=== PATIENT | female | born 1965 | race Two or more races ===

== ENCOUNTER 2025-10-19 15:07 | Outpatient (AMB) | payer OTHER, SELFPAY ==
--- NOTE | 2025-10-19 15:29 | A.PHYSOV_ITS ---
Vital Signs 10/19/25 15:34 Height 5 ft 4 in Weight 231 lb BMI 39.6 Intake Visit Reasons: Bilateral shoulder pain Intake Note: Patient is a 60 year old female in office today for a follow up visit. Patient is here for Bilateral shoulder pain pain is bilateral sleeping waking up with burses Allergies acetaminophen (From Percocet) Allergy (Unknown, Verified 10/16/25 16:32) Unknown carisoprodol (From Soma) Allergy (Unknown, Verified 10/16/25 16:32) Unknown oxycodone (From Percocet) Allergy (Unknown, Verified 10/16/25 16:32) Unknown Sulfa (Sulfonamide Antibiotics) Allergy (Unknown, Verified 10/16/25 16:32) Unknown HPI Comments Details: History of Present Illness The patient is a 60 year old female presenting for management of bilateral shoulder pain. The patient reports that pain in her shoulders makes it difficult to sleep on her side and causes pain when she lifts her arms. She has received injections in her shoulder before, which provided relief. The patient also reports issues with hip pain and received two cortisone injections in her hips from another provider on the day of this visit. That provider suspects she has bursitis. She notes her knee pain is improving post- surgery, but her hip pain has worsened. The patient was recently diagnosed with diabetes after her A1c was 6.6. With weekly Mounjaro injections, her A1c has decreased to 5.2. She has a history of hypertension, noting her blood pressure elevates when she is in pain and her sleep is poor. She also takes a statin medication for cholesterol. The patient experiences numbness in her leg if she sits for too long. For pain, she has previously taken gabapentin 100 mg, sometimes up to 300 mg at a time, which she found helpful but ran out. She reports anxiety and nervousness related to receiving injections. Her family history is significant for arthritis in her mother and heart disease affecting her mother, grandmother, and grandfather. She is currently on FMLA from work and is concerned about returning while still in pain. Pain Description - Location: Pain is located in the bilateral shoulders and hips. - Quality: The pain is severe enough to wake her from sleep. - Exacerbating Factors: Shoulder pain is worsened by sleeping on her side and lifting her arms. - Interference with Function: Pain interferes with her sleep, ability to roll over, walking, and ability to work. Results - Labs: Recent hemoglobin A1c was 5.2%, down from a prior level of 6.6%. [facility] Surgical History (Updated 10/16/25 @ 16:32 by Niesha Foss MA) History of cholecystectomy Social History (Updated 10/16/25 @ 16:32 by Niesha Foss MA) Alcohol intake: current Alcohol intake frequency: does not drink Review of Systems Narrative Review of Systems - Constitutional: Reports poor sleep due to pain. - Musculoskeletal: Reports bilateral shoulder pain and bilateral hip pain. - Neurological: Reports intermittent numbness in her leg when sitting for prolonged periods. - Psychiatric: Reports feeling anxious and nervous when receiving injections. Physical Exam Exam Exam: Physical Exam Cervical Spine: She is tender to bilateral upper trapezius. Full range of motion of the cervical spine. Special Tests: Axial Compression test: Negative Spurlings test: Negative Lhermitte's sign is Negative Upper Extremities: Full range of motion bilateral upper extremities. 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 Positive Neer testing bilaterally. Neuro: Sensation: Intact to upper extremities bilateral to light touch Strength C5 (Elbow Flexion): 5/5 on the left and 5/5 on the right. C6 (Elbow Ext): 5/5 on the left and 5/5 on the right. C7 (Elbow Ext): 5/5 on the left and 5/5 on the right. C8 (Finger Flex): 5/5 on the left and 5/5 on the right. T1 (Finger Abd/Add): 5/5 on the left and 5/5 on the right. DTR: C5 (Biceps): Left 2 Right 2 C6 (Brachioradialis): Left 2 Right 2 C7 (Triceps): Left 2 Right 2 Robles sign: Negative No pathologic clonus. No involuntary movement. Vital Signs: BMI result Body Mass Index 39.6 Assessment & Plan Assessment & Plan (1) Impingement of both shoulders: Code(s): M25.811 - Other specified joint disorders, right shoulder; M25.812 - Other specified joint disorders, left shoulder Category: Medical Plan Pain Management - Affect: The patient reports being tired of being in pain and notes that her pain contributes to poor sleep, which in turn elevates her blood pressure. - Analgesia: The patient reports that gabapentin was helping her pain and requests a refill. - She received two steroid injections in her hips from another provider today. - Adverse Effects: The patient is concerned that steroid injections can raise her blood sugar. - Activities of Daily Living: Pain interferes with her sleep, walking, and ability to perform her job. - Aberrant Drug Related Behaviors: The patient denies any aberrant behaviors and reports using gabapentin based on her pain levels. Plan Patient was informed and verbally consented to the use of an ambient scribe for clinic note documentation during this visit. 1. Bilateral Shoulder Pain The patient reports bilateral shoulder pain that is affecting her sleep and function. As she received two steroid injections in her hips today, she is not a candidate for shoulder injections at this visit. A follow-up appointment will be scheduled in approximately two weeks to administer two cortisone injections into the shoulders. 2. Neuropathic Pain The patient reports that gabapentin was effective for her pain, but she ran out of her prescription. A new prescription for gabapentin 300 mg tablets will be sent to her pharmacy, with instructions to take one tablet up to three times daily as needed for pain, with plenty of refills provided. 3. Type 2 Diabetes Mellitus The patient voiced concern about the effect of cortisone injections on her blood sugar, as she was recently diagnosed with diabetes. She was counseled that steroids can cause a temporary spike in daily glucose readings for 3-5 days but are unlikely to significantly impact her overall hemoglobin A1c over three months. She will monitor the effects of the recent hip injections on her blood sugar. 4. Bilateral Hip Pain The patient is being managed for bilateral hip pain by another provider and received two injections for this condition today. Her care for this issue will continue with that provider. Discussion Notes I discussed with the patient the importance of having one provider manage each specific problem to avoid confusion and overlapping treatments, particularly regarding her hip and shoulder pain. I explained that because she received two steroid injections in her hips today, I cannot safely administer additional steroid injections for her shoulders during this visit. We agreed to schedule a follow-up appointment in approximately two weeks for bilateral shoulder injections. I addressed her concerns about the effect of steroids on her diabetes, explaining that while her daily blood glucose may rise temporarily, it is not expected to have a significant long-term impact on her hemoglobin A1c. I agreed to her request for a refill of gabapentin, as it has been effective for her pain, and I will prescribe the 300 mg dosage to be taken up to three times a day. Regarding her new symptom of leg numbness, I suggested it may originate from her back but agreed to focus on the shoulder pain first. Patient Instructions - Please make a follow-up appointment at the senior front end engineer for about two weeks from now. - At that visit, we can give you injections in your shoulders to help with the pain. - I have sent a prescription for Gabapentin 300 mg tablets to the [facility]. - You can take one pill up to three times a day as you need it for pain. - The steroid shots you received in your hips today may cause your blood sugar to go up for a few days. - This is usually temporary, but please keep an eye on your sugar levels. - Please continue to follow up with your other doctor for your hip pain. Medications: New gabapentin 300 mg PO TID 90 caps 0RF 30 days M54.16 - Radiculopathy, lumbar region Coding Level of Care Code Tele Est Pt Level 3 (92239) Diagnoses Impingement of both shoulders M25.811; M25.812
[2025-10-19 15:34] VITALS: BMI 39.6
--- OUTSIDE RECORDS SUMMARY | 2025-10-19 22:39 | XMS_ITS ---
Author Name [facility] Organization Unknown Care Team Organization Name Specialty Phone Email Start Date End Da te [facility] Shara Santos Primary Care 08/12/2023 024 [facility] Dylan Chilel Primary Care 01/14/202306/09 [facility] Termed, PROVIDER Primary Care 09/16/202206/09
--- OUTSIDE RECORDS SUMMARY | 2025-10-19 22:39 | XMS_ITS | Encounter Summary ---
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 Role Phone Shara Santos MD Primary Care Provider [phone] Encounter Details Date Type Department Care Team (Late Contact Info) Description 09/11/2025 Results Follow-Up Adult Medicine [address] [phone] Deedee Carreon [place] Social History Tobacco Use Types Packs/Day Years Used Date Smoking Tobacco: Never Smokeless Tobacco: Never Alcohol Use Standard Drinks/Week Comments Not Currently 0 (1 standard drink = 0.6 oz pur e alcohol) Comments No Sex and Gender Information Value Date Recorded Sex Assigned at Not on file Legal Sex Female 4:33 AM EST Gender Identity Not on file Sexual Orientation Not on file documented as of this encounter Plan of Treatment Upcoming Encounters Date Type Department Care Team (Late Contact Info) Description 01/10/2026 12:30 PM EST Office Visit Adult Medicine [address] [phone] Dede Holden PA [address] [place] [address] 03/14/2026 11:00 AM EDT [facility] [address] [facility] [address] [place] [phone] 04/18/2026 11:30 AM EDT Office Visit Pulmonology [address] [place] [phone] Claire Richmond MD [address] [place] [phone] documented as of this encounter Visit Diagnoses Not on filedocumented in this encounter Care Teams [employer] Mechanic Relationship Specialty Start Date End Date Shara Santos MD [address] [place] [phone] PCP - General Internal Medicine 09/14/24 documented as of this encounter
--- OUTSIDE RECORDS SUMMARY | 2025-10-19 22:39 | XMS_ITS | Patient Health Record ---
Author Organization [facility] [address] Address [address] [place] [address] Care Team Providers Care Director Of Cardiac Cath Lab Name Role Phone Charlee [employer] [facility] Primary Car e Provider Unavailable JARED HADDAD Unavailable [phone] Allergies Allergen (clinical drug ingredient) Drug/Non Drug Allergy documented on EMR Reaction Allergy Type Onset Date Status acetaminophen / oxycodone Percocet Unknown Drug Allergy Active carisoprodol Soma hives Drug Allergy Acti ve Substance with sulfonamide structure and antibacterial mechanism of action (substance) Sulfa Antibiotics hives Drug Allergy Active Results Component Value Reference Range Notes LIPASE Reviewed date:02/16/2025 11:25:46 AM Interpretation: Performing Lab: Notes/Report: Lipase 29 13-75 unit/L AMYLASE Reviewed date:02/16/2025 11:25:43 AM Interpretation: Performing Lab: Notes/Report: Amylase 64 25-115 unit/L Reason For Referral No Information Medications Medication SIG (Take, Route, Frequency, Duration) Notes Start Date End Date Status Albuterol Sulfate (2.5 MG/3ML) 0.083% Nebulization Solution Inhalation; Duration: 16 Days Active Atorvastatin Calcium 10 MG Tablet Oral; Duration: 90 Days Active Losartan Potassium 50 MG Tablet TAKE 1 TABLET BY MOUTH EVERY DAY Oral; Duration: 90 Days Active Diclofenac Sodium 75 MG Tablet Delayed Release TAKE 1 TABLET BY MOUTH TWICE A DAY Oral; Duration: 30 Days Active Breztri Aerosphere 160-9-4.8 MCG/ACT Aerosol 2 puffs Inhalation Twice a day Active Motrin 800mg as needed for pain Active Omeprazole 20 MG Capsule Delayed Release TAKE 1 CAPSULE BY MOUTH EVERY DAY Oral; Duration: 90 Days Active Montelukast Sodium 10 MG Tablet TAKE 1 TABLET BY MOUTH EVERYDAY AT BEDTIME Oral; Duration: 90 Days Active Methocarbamol 750 MG Tablet Oral; Duration: 30 Days Active Mounjaro 15 MG/0.5ML Solution Auto-injector Inject 15mg Subcutaneous weekly; Duration: 30 days Active Social History Section Notes: Tob: Denies Etoh: Social/infrequent Drug: Denies Tob: Denies Etoh: Social/infrequent Drug: Denies Tob: Denies Etoh: Social/infrequent Drug: Denies Tob: Denies Etoh: Social/infrequent Drug: Denies Tob: Denies Etoh: Social/infrequent Drug: Denies Tob: Denies Etoh: Social/infrequent Drug: Denies Tob: Denies Etoh: Social/infrequent Drug: Denies Problems Problem Type SNOMED Code ICD Code Onset Dates Problem Status W/U Status Risk Notes Problem Mixed hyperlipidemia (586560195) Mixed hyperlipidemia (E78.2) Active confirmed Problem Essential hypertension (31997015) Essential hypertension (I10) Active confirmed Problem Arthritis (0354038) Arthritis (M19.90) Active confirmed Problem Body mass index 40+ - morbidly obese (767906827) BMI 40.0-44.9, adult (Z68.41) Active confirmed Problem Type II diabetes mellitus without complication (945566088) Type 2 diabetes mellitus without complication, without long-term current use of insulin (E11.9) Active confirmed Problem Uncomplicated moderate persistent asthma (987212691) Moderate persistent asthma without complication (J45.40) Active confirmed Problem Morbid obesity (disorder) (233309116) Obesity, Class III, BMI 40-49.9 (morbid obesity) (E66.01) Active confirmed Vital Signs Heart Rate 93 /min 09/26/2025 Oximetry 98 % 09/26/2025 Blood pressure diastolic 82 mm Hg 09/26/2025 Height 63 in 09/26/2025 Blood pressure systolic 138 mm Hg 09/26/2025 Weight 228.9 lbs 09/26/2025 BMI 40.54 kg/m2 09/26/2025 Encounters Encounter Location Date Provider Diagnosis [facility] [address] [place] [id number] 02/14/2025 JARED CATIE Obesity, Class III, BMI 40-49.9 (morbid obesity) E66.01 ; BMI 40.0-44.9, adult Z68.41 ; Type 2 diabetes mellitus without complication, without long-term current use of insulin E11.9 ; Essential hypertension I10 ; Mixed hyperlipidemia E78.2 ; Moderate persistent asthma without complication J45.40 ; Arthritis M19.90 ; History of pancreatitis Z87.19 and Nutritional [facility]71.[facility] [address] [address] 03/15/2025 JARED MATTHEWS Obesity, Class III, BMI 40-49.9 (morbid obesity) E66.01 ; BMI 40.0-44.9, adult Z68.41 ; Type 2 diabetes mellitus without complication, without long-term current use of insulin E11.9 ; Essential hypertension I10 ; Mixed hyperlipidemia E78.2 ; Moderate persistent asthma without complication J45.40 ; Arthritis M19.90 ; History of pancreatitis Z87.19 and Nutritional counseling Z71.3 [facility] [address] [address] 04/12/2025 JARED MATTHEWS Obesity, Class III, BMI 40-49.9 (morbid obesity) E66.01 ; BMI 40.0-44.9, adult Z68.41 ; Type 2 diabetes mellitus without complication, without long-term current use of insulin E11.9 ; Essential hypertension I10 ; Mixed hyperlipidemia E78.2 ; Arthritis M19.90 and Nutritional counseling Z71.3 [facility] [address] [address] 05/17/2025 JARED MATTHEWS BMI 40.0-44.9, adult Z68.41 ; Obesity, Class III, BMI 40-49.9 (morbid obesity) E66.01 ; Type 2 diabetes mellitus without complication, without long-term current use of insulin E11.9 ; Essential hypertension I10 ; Mixed hyperlipidemia E78.2 ; Arthritis M19.90 and Nutritional counseling Z71.3 [facility] [address] [address] 06/22/2025 JARED MATTHEWS BMI 40.0-44.9, adult Z68.41 ; Obesity, Class III, BMI 40-49.9 (morbid obesity) E66.01 ; Type 2 diabetes mellitus without complication, without long-term current use of insulin E11.9 ; Essential hypertension I10 ; Mixed hyperlipidemia E78.2 ; Arthritis M19.90 and Nutritional counseling Z71.3 [facility] [address] [address] 08/10/2025 JARED HADDAD BMI 40.0-44.9, adult Z68.41 ; Obesity, Class III, BMI 40-49.9 (morbid obesity) E66.01 ; Type 2 diabetes mellitus without complication, without long-term current use of insulin E11.9 ; Essential hypertension I10 ; Mixed hyperlipidemia E78.2 ; Arthritis M19.90 and Nutritional counseling Z71.3 [facility] [address] [address] 09/26/2025 JARED CONNELLYHAM BMI 40.0-44.9, adult Z68.41 ; Obesity, Class III, BMI 40-49.9 (morbid obesity) E66.01 ; Type 2 diabetes mellitus without complication, without long-term current use of insulin E11.9 ; Essential hypertension I10 ; Mixed hyperlipidemia E78.2 ; Arthritis M19.90 and Nutritional counseling Z71.3 [facility] [address] [address] 02/16/2025 JARED MATTHEWS [facility] [address] [address] 02/20/2025 JARED MATTHEWS [facility] [address] [address] 02/28/2025 JARDE MATTHEWS [facility] [address] [address] 08/10/2025 JARED MATTHEWS Type 2 diabetes johanna itus without complication, without long-term current use of insulin E11.9 Assessments Encounter Date Diagnosis (ICD Code) Assessment Notes Treatment Notes Treatment Clinical Notes Section Notes 02/14/2025 BMI 40.0-44.9, adult (ICD-10 - Z68.41) Kasie is a 59-year-old female with a PMH of T2DM (A1c 6.6%), asthma, HTN, HLD, arthritis that presents for weight management consultation. Patient was reassured and welcomed to the practice. Discussed [facility] holistic and medical approach to weight loss with emphasis on lifestyle modification. Patient is educated that a healthy lifestyle aids in combating obesity as well as reducing the risk of developing obesity-related medical complications including but not limited to diabetes and cardiovascular disease. Detailed education provided about taking steps to initiate sustainable lifestyle changes including incorporating regular physical activity, making healthy diet choices, and prioritizing mental health. Information provided about literature including The Food Rules by Mukul Lopez and Eat Fat Get Lean by Dr Brannon Flynn. Handouts including lifestyle checklist, protein content of food, low calorie snacks, and cholesterol information sheet provided. Diagnostic testing/ SECA scale offered. Discussed the importance of regular SECA scale measurements to ensure healthy weight loss. 02/14/2025: Weight: 248, BMI: 43.9. Reviewed SECA/goals for implementing sustainable lifestyle changes. Patient is encouraged to increase physical activity, goal 8-10k steps/day. Also discussed the importance of strength training with proper safety/body mechanics for maintenance of muscle mass/bone health. Patient encouraged to drink 60-80oz water/day. Reviewed nutrition, recommending food diary x 1 week to ensure adequate caloric/protein intake. Goal of 80g protein/day. Reviewed risks, benefits, and side effects of weight management medications including phentermine, Topamax, Contrave, metformin, and GLP-1 agonist. Patient interested in GLP-1 agonist Mounjaro. Denies personal/family history of medullary thyroid cancer/MEN syndrome. Reviewed proper use/administration, side effects, and expectations for PA process/insurance coverage. Patient does have history of mild pancreatitis, upon review of [employer] no history of previous amylase/lipase. Will order to assess if elevated at baseline prior to starting Mounjaro. If WNL plan to send Rx for Mounjaro 2.5 mg SC weekly. All questions answered to the patient's satisfaction. Patient demonstrates understanding of diagnosis and treatments discussed. Follow-up in 4 weeks, sooner should any questions/concerns arise. Case discussed with collaborating physician Gaby Mcpherson who has reviewed the assessment/plan. Chart, medications, labs, and vital signs reviewed. Dictation completed with the use of [employer] voice recognition software, prone to medical misidentifications and grammatical errors. All errors are unintentional. Although the practitioner does try to identify and correct errors, some may be present. Please do not hesitate to contact the practitioner for clarification. Total time was 60 minutes spent with >50% on coordination of care and patient education. 02/14/2025 Obesity, Class III, BMI 40-49.9 (morbid obesity) (ICD-10 - E66.01) Kasie is a 59-year-old female with a PMH of T2DM (A1c 6.6%), asthma, HTN, HLD, arthritis that presents for weight management consultation. Patient was reassured and welcomed to the practice. Discussed [facility] holistic and medical approach to weight loss with emphasis on lifestyle modification. Patient is educated that a healthy lifestyle aids in combating obesity as well as reducing the risk of developing obesity-related medical complications including but not limited to diabetes and cardiovascular disease. Detailed education provided about taking steps to initiate sustainable lifestyle changes including incorporating regular physical activity, making healthy diet choices, and prioritizing mental health. Information provided about literature including The Food Rules by Mukul Lopez and Eat Fat Get Lean by Dr Brannon Flynn. Handouts including lifestyle checklist, protein content of food, low calorie snacks, and cholesterol information sheet provided. Diagnostic testing/ SECA scale offered. Discussed the importance of regular SECA scale measurements to ensure healthy weight loss. 02/14/2025: Weight: 248, BMI: 43.9. Reviewed SECA/goals for implementing sustainable lifestyle changes. Patient is encouraged to increase physical activity, goal 8-10k steps/day. Also discussed the importance of strength training with proper safety/body mechanics for maintenance of muscle mass/bone health. Patient encouraged to drink 60-80oz water/day. Reviewed nutrition, recommending food diary x 1 week to ensure adequate caloric/protein intake. Goal of 80g protein/day. Reviewed risks, benefits, and side effects of weight management medications including phentermine, Topamax, Contrave, metformin, and GLP-1 agonist. Patient interested in GLP-1 agonist Mounjaro. Denies personal/family history of medullary thyroid cancer/MEN syndrome. Reviewed proper use/administration, side effects, and expectations for PA process/insurance coverage. Patient does have history of mild pancreatitis, upon review of [employer] no history of previous amylase/lipase. Will order to assess if elevated at baseline prior to starting Mounjaro. If WNL plan to send Rx for Mounjaro 2.5 mg SC weekly. All questions answered to the patient's satisfaction. Patient demonstrates understanding of diagnosis and treatments discussed. Follow-up in 4 weeks, sooner should any questions/concerns arise. Case discussed with collaborating physician Gaby Mcpherson who has reviewed the assessment/plan. Chart, medications, labs, and vital signs reviewed. Dictation completed with the use of [employer] voice recognition software, prone to medical misidentifications and grammatical errors. All errors are unintentional. Although the practitioner does try to identify and correct errors, some may be present. Please do not hesitate to contact the practitioner for clarification. Total time was 60 minutes spent with >50% on coordination of care and patient education. 03/15/2025 Obesity, Class III, BMI 40-49.9 (morbid obesity) (ICD-10 - E66.01) Kasie is a 59-year-old female with a PMH of T2DM (A1c 6.6%), asthma, HTN, HLD, arthritis that presents for weight management follow-up. Reviewed [facility] holistic and medical approach to weight loss with emphasis on lifestyle modification. 03/15/2025: Weight: 244.6, BMI: 43.3. Patient down 4 pounds. SECA reviewed, reveals 6 pounds of fat mass and maintenance of healthy muscle mass. Discussed importance of continued prioritization of protein intake, goal 25 to 30 g/meal. She is also encouraged to continue hydrating adequately. Recommending at least 8K steps/day with added strength training 2-3 times weekly. Will increase dose of Mounjaro to 5 mg SC weekly and follow-up in 1 month. 02/14/2025: Weight: 248, BMI: 43.9. Reviewed SECA/goals for implementing sustainable lifestyle changes. Patient is encouraged to increase physical activity, goal 8-10k steps/day. Also discussed the importance of strength training with proper safety/body mechanics for maintenance of muscle mass/bone health. Patient encouraged to drink 60-80oz water/day. Reviewed nutrition, recommending food diary x 1 week to ensure adequate caloric/protein intake. Goal of 80g protein/day. Reviewed risks, benefits, and side effects of weight management medications including phentermine, Topamax, Contrave, metformin, and GLP-1 agonist. Patient interested in GLP-1 agonist Mounjaro. Denies personal/family history of medullary thyroid cancer/MEN syndrome. Reviewed proper use/administration, side effects, and expectations for PA process/insurance coverage. Patient does have history of mild pancreatitis, upon review of [employer] no history of previous amylase/lipase. Will order to assess if elevated at baseline prior to starting Mounjaro. If WNL plan to send Rx for Mounjaro 2.5 mg SC weekly. All questions answered to the patient's satisfaction. Patient demonstrates understanding of diagnosis and treatments discussed. Follow-up in 4 weeks, sooner should any questions/concerns arise. Case discussed with collaborating physician Gaby Mcpherson who has reviewed the assessment/plan. Chart, medications, labs, and vital signs reviewed. Dictation completed with the use of [employer] voice recognition software, prone to medical misidentifications and grammatical errors. All errors are unintentional. Although the practitioner does try to identify and correct errors, some may be present. Please do not hesitate to contact the practitioner for clarification. Total time was 30 minutes spent with >50% on coordination of care and patient education. 04/12/2025 BMI 40.0-44.9, adult (ICD-10 - Z68.41) Kasie is a 59-year-old female with a PMH of T2DM (A1c 6.6%), asthma, HTN, HLD, arthritis that presents for weight management follow-up. Reviewed [facility] holistic and medical approach to weight loss with emphasis on lifestyle modification. 04/12/2025: Weight: 240.8, BMI: 42.6. Patient down 4 pounds. SECA reviewed, reveals 1.5 pounds of fat loss and 3 pounds muscle mass loss. Patient encouraged to continue making health-conscious diet choices and practicing portion control. Protein goal 25 to 30 g/meal. Discussed importance of exercising as tolerated with goal of not exacerbating current knee injury. Plan increase dose of Mounjaro to 7.5 mg SC weekly and follow-up in 1 month. 03/15/2025: Weight: 244.6, BMI: 43.3. (-4lbs) 02/14/2025: Weight: 248, BMI: 43.9. All questions answered to the patient's satisfaction. Patient demonstrates understanding of diagnosis and treatments discussed. Follow-up in 4 weeks, sooner should any questions/concerns arise. Case discussed with collaborating physician Gaby Mcpherson who has reviewed the assessment/plan. Chart, medications, labs, and vital signs reviewed. Dictation completed with the use of [employer] voice recognition software, prone to medical misidentifications and grammatical errors. All errors are unintentional. Although the practitioner does try to identify and correct errors, some may be present. Please do not hesitate to contact the practitioner for clarification. Total time was 30 minutes spent with >50% on coordination of care and patient education. 04/12/2025 Obesity, Class III, BMI 40-49.9 (morbid obesity) (ICD-10 - E66.01) Kasie is a 59-year-old female with a PMH of T2DM (A1c 6.6%), asthma, HTN, HLD, arthritis that presents for weight management follow-up. Reviewed [facility] holistic and medical approach to weight loss with emphasis on lifestyle modification. 04/12/2025: Weight: 240.8, BMI: 42.6. Patient down 4 pounds. SECA reviewed, reveals 1.5 pounds of fat loss and 3 pounds muscle mass loss. Patient encouraged to continue making health-conscious diet choices and practicing portion control. Protein goal 25 to 30 g/meal. Discussed importance of exercising as tolerated with goal of not exacerbating current knee injury. Plan increase dose of Mounjaro to 7.5 mg SC weekly and follow-up in 1 month. 03/15/2025: Weight: 244.6, BMI: 43.3. (-4lbs) 02/14/2025: Weight: 248, BMI: 43.9. All questions answered to the patient's satisfaction. Patient demonstrates understanding of diagnosis and treatments discussed. Follow-up in 4 weeks, sooner should any questions/concerns arise. Case discussed with collaborating physician Gaby Mcpherson who has reviewed the assessment/plan. Chart, medications, labs, and vital signs reviewed. Dictation completed with the use of [employer] voice recognition software, prone to medical misidentifications and grammatical errors. All errors are unintentional. Although the practitioner does try to identify and correct errors, some may be present. Please do not hesitate to contact the practitioner for clarification. Total time was 30 minutes spent with >50% on coordination of care and patient education. 05/17/2025 BMI 40.0-44.9, adult (ICD-10 - Z68.41) Kasie is a 60-year-old female with a PMH of T2DM (A1c 6.6%), asthma, HTN, HLD, arthritis that presents for weight management follow-up. Reviewed [facility] holistic and medical approach to weight loss with emphasis on lifestyle modification. 05/17/2025: Weight: 239.7, BMI: 42.5. SECA reviewed, reveals 3 pounds of fat loss and 2 pounds muscle mass gain. Patient encouraged to continue making health-conscious diet choices and prioritizing protein intake. Discussed importance of adequate hydration. Discussed modified physical activity with a goal of not exacerbating knee pain. Will increase dose of Mounjaro to 10 mg SC weekly. Upon discontinuation for surgery will reinitiate at lower dose. 04/12/2025: Weight: 240.8, BMI: 42.6. (-4lbs) 03/15/2025: Weight: 244.6, BMI: 43.3. (-4lbs) 02/14/2025: Weight: 248, BMI: 43.9. All questions answered to the patient's satisfaction. Patient demonstrates understanding of diagnosis and treatments discussed. Follow-up in 4 weeks, sooner should any questions/concerns arise. Case discussed with collaborating physician Gaby Mcpherson who has reviewed the assessment/plan. Chart, medications, labs, and vital signs reviewed. Dictation completed with the use of [employer] voice recognition software, prone to medical misidentifications and grammatical errors. All errors are unintentional. Although the practitioner does try to identify and correct errors, some may be present. Please do not hesitate to contact the practitioner for clarification. Total time was 30 minutes spent with >50% on coordination of care and patient education. 06/22/2025 BMI 40.0-44.9, adult (ICD-10 - Z68.41) Kasie is a 60-year-old female with a PMH of T2DM (A1c 6.6%), asthma, HTN, HLD, arthritis that presents for weight management follow-up. Reviewed [facility] holistic and medical approach to weight loss with emphasis on lifestyle modification. 06/22/2025: Weight: 237.7, BMI: 42.1 (-3lbs) SECA reviewed, reveals loss of fat mass with improvement in muscle mass. Patient encouraged to continue making health-conscious diet choices, prioritizing protein intake, practicing portion control, hydrating adequately, and exercising as tolerated. Will reinitiate treatment with Mounjaro 10 mg SC weekly and follow-up in 6 weeks. 05/17/2025: Weight: 239.7, BMI: 42.5. (-1lb) 04/12/2025: Weight: 240.8, BMI: 42.6. (-4lbs) 03/15/2025: Weight: 244.6, BMI: 43.3. (-4lbs) 02/14/2025: Weight: 248, BMI: 43.9. All questions answered to the patient's satisfaction. Patient demonstrates understanding of diagnosis and treatments discussed. Follow-up in 4 weeks, sooner should any questions/concerns arise. Case discussed with collaborating physician Gaby Mcpherson who has reviewed the assessment/plan. Chart, medications, labs, and vital signs reviewed. Dictation completed with the use of [employer] voice recognition software, prone to medical misidentifications and grammatical errors. All errors are unintentional. Although the practitioner does try to identify and correct errors, some may be present. Please do not hesitate to contact the practitioner for clarification. Total time was 30 minutes spent with >50% on coordination of care and patient education. 08/10/2025 BMI 40.0-44.9, adult (ICD-10 - Z68.41) Kasie is a 60-year-old female with a PMH of T2DM (A1c 6.6%), asthma, HTN, HLD, arthritis that presents for weight management follow-up. Reviewed [facility] holistic and medical approach to weight loss with emphasis on lifestyle modification. 08/10/2025: Weight: 228, BMI: 40.4. (-9lbs) SECA reviewed, reveals primarily fat loss. Patient congratulated on progress. She is encouraged to continue making health-conscious diet choices and prioritizing protein intake. Discussed importance of adequate hydration. Increase physical activity as tolerated given recent knee replacement. Will increase dose of Mounjaro to 12.5 mg SC weekly and follow-up in 6 weeks. 06/22/2025: Weight: 237.7, BMI: 42.1 (-3lbs) 05/17/2025: Weight: 239.7, BMI: 42.5. (-1lb) 04/12/2025: Weight: 240.8, BMI: 42.6. (-4lbs) 03/15/2025: Weight: 244.6, BMI: 43.3. (-4lbs) 02/14/2025: Weight: 248, BMI: 43.9. All questions answered to the patient's satisfaction. Patient demonstrates understanding of diagnosis and treatments discussed. Follow-up in 4 weeks, sooner should any questions/concerns arise. Case discussed with collaborating physician Gaby Mcpherson who has reviewed the assessment/plan. Chart, medications, labs, and vital signs reviewed. Dictation completed with the use of [employer] voice recognition software, prone to medical misidentifications and grammatical errors. All errors are unintentional. Although the practitioner does try to identify and correct errors, some may be present. Please do not hesitate to contact the practitioner for clarification. Total time was 30 minutes spent with >50% on coordination of care and patient education. 08/10/2025 Type 2 diabetes mellitus without complication, without long-term current use of insulin (ICD-10 - E11.9) 09/26/2025 BMI 40.0-44.9, adult (ICD-10 - Z68.41) Kasie is a 60-year-old female with a PMH of T2DM (A1c 6.6%), asthma, HTN, HLD, arthritis that presents for weight management follow-up. Reviewed [facility] holistic and medical approach to weight loss with emphasis on lifestyle modification. 09/26/2025: Weight: 228.9, BMI: 40.5. SECA reviewed, relatively unchanged. She is encouraged to continue making health-conscious diet choices and prioritizing protein intake. Discussed importance of adequate hydration. Increase physical activity as tolerated given recent knee replacement. Will increase dose of Mounjaro to 15 mg SC weekly and follow-up in 6 weeks. 08/10/2025: Weight: 228, BMI: 40.4. (-9lbs) 06/22/2025: Weight: 237.7, BMI: 42.1 (-3lbs) 05/17/2025: Weight: 239.7, BMI: 42.5. (-1lb) 04/12/2025: Weight: 240.8, BMI: 42.6. (-4lbs) 03/15/2025: Weight: 244.6, BMI: 43.3. (-4lbs) 02/14/2025: Weight: 248, BMI: 43.9. All questions answered to the patient's satisfaction. Patient demonstrates understanding of diagnosis and treatments discussed. Follow-up in 4 weeks, sooner should any questions/concerns arise. Case discussed with collaborating physician Gaby Mcpherson who has reviewed the assessment/plan. Chart, medications, labs, and vital signs reviewed. Dictation completed with the use of [employer] voice recognition software, prone to medical misidentifications and grammatical errors. All errors are unintentional. Although the practitioner does try to identify and correct errors, some may be present. Please do not hesitate to contact the practitioner for clarification. Total time was 30 minutes spent with >50% on coordination of care and patient education. 09/26/2025 Type 2 diabetes mellitus without complication, without long-term current use of insulin (ICD-10 - E11.9) Kasie is a 60-year-old female with a PMH of T2DM (A1c 6.6%), asthma, HTN, HLD, arthritis that presents for weight management follow-up. Reviewed [facility] holistic and medical approach to weight loss with emphasis on lifestyle modification. 09/26/2025: Weight: 228.9, BMI: 40.5. SECA reviewed, relatively unchanged. She is encouraged to continue making health-conscious diet choices and prioritizing protein intake. Discussed importance of adequate hydration. Increase physical activity as tolerated given recent knee replacement. Will increase dose of Mounjaro to 15 mg SC weekly and follow-up in 6 weeks. 08/10/2025: Weight: 228, BMI: 40.4. (-9lbs) 06/22/2025: Weight: 237.7, BMI: 42.1 (-3lbs) 05/17/2025: Weight: 239.7, BMI: 42.5. (-1lb) 04/12/2025: Weight: 240.8, BMI: 42.6. (-4lbs) 03/15/2025: Weight: 244.6, BMI: 43.3. (-4lbs) 02/14/2025: Weight: 248, BMI: 43.9. All questions answered to the patient's satisfaction. Patient demonstrates understanding of diagnosis and treatments discussed. Follow-up in 4 weeks, sooner should any questions/concerns arise. Case discussed with collaborating physician Gaby Mcpherson who has reviewed the assessment/plan. Chart, medications, labs, and vital signs reviewed. Dictation completed with the use of [employer] voice recognition software, prone to medical misidentifications and grammatical errors. All errors are unintentional. Although the practitioner does try to identify and correct errors, some may be present. Please do not hesitate to contact the practitioner for clarification. Total time was 30 minutes spent with >50% on coordination of care and patient education. 09/26/2025 Obesity, Class III, BMI 40-49.9 (morbid obesity) (ICD-10 - E66.01) Kasie is a 60-year-old female with a PMH of T2DM (A1c 6.6%), asthma, HTN, HLD, arthritis that presents for weight management follow-up. Reviewed [facility] holistic and medical approach to weight loss with emphasis on lifestyle modification. 09/26/2025: Weight: 228.9, BMI: 40.5. SECA reviewed, relatively unchanged. She is encouraged to continue making health-conscious diet choices and prioritizing protein intake. Discussed importance of adequate hydration. Increase physical activity as tolerated given recent knee replacement. Will increase dose of Mounjaro to 15 mg SC weekly and follow-up in 6 weeks. 08/10/2025: Weight: 228, BMI: 40.4. (-9lbs) 06/22/2025: Weight: 237.7, BMI: 42.1 (-3lbs) 05/17/2025: Weight: 239.7, BMI: 42.5. (-1lb) 04/12/2025: Weight: 240.8, BMI: 42.6. (-4lbs) 03/15/2025: Weight: 244.6, BMI: 43.3. (-4lbs) 02/14/2025: Weight: 248, BMI: 43.9. All questions answered to the patient's satisfaction. Patient demonstrates understanding of diagnosis and treatments discussed. Follow-up in 4 weeks, sooner should any questions/concerns arise. Case discussed with collaborating physician Gaby Mcpherson who has reviewed the assessment/plan. Chart, medications, labs, and vital signs reviewed. Dictation completed with the use of [employer] voice recognition software, prone to medical misidentifications and grammatical errors. All errors are unintentional. Although the practitioner does try to identify and correct errors, some may be present. Please do not hesitate to contact the practitioner for clarification. Total time was 30 minutes spent with >50% on coordination of care and patient education. 08/10/2025 Obesity, Class III, BMI 40-49.9 (morbid obesity) (ICD-10 - E66.01) Kasie is a 60-year-old female with a PMH of T2DM (A1c 6.6%), asthma, HTN, HLD, arthritis that presents for weight management follow-up. Reviewed [facility] holistic and medical approach to weight loss with emphasis on lifestyle modification. 08/10/2025: Weight: 228, BMI: 40.4. (-9lbs) SECA reviewed, reveals primarily fat loss. Patient congratulated on progress. She is encouraged to continue making health-conscious diet choices and prioritizing protein intake. Discussed importance of adequate hydration. Increase physical activity as tolerated given recent knee replacement. Will increase dose of Mounjaro to 12.5 mg SC weekly and follow-up in 6 weeks. 06/22/2025: Weight: 237.7, BMI: 42.1 (-3lbs) 05/17/2025: Weight: 239.7, BMI: 42.5. (-1lb) 04/12/2025: Weight: 240.8, BMI: 42.6. (-4lbs) 03/15/2025: Weight: 244.6, BMI: 43.3. (-4lbs) 02/14/2025: Weight: 248, BMI: 43.9. All questions answered to the patient's satisfaction. Patient demonstrates understanding of diagnosis and treatments discussed. Follow-up in 4 weeks, sooner should any questions/concerns arise. Case discussed with collaborating physician Gaby Mcpherson who has reviewed the assessment/plan. Chart, medications, labs, and vital signs reviewed. Dictation completed with the use of [employer] voice recognition software, prone to medical misidentifications and grammatical errors. All errors are unintentional. Although the practitioner does try to identify and correct errors, some may be present. Please do not hesitate to contact the practitioner for clarification. Total time was 30 minutes spent with >50% on coordination of care and patient education. 06/22/2025 Obesity, Class III, BMI 40-49.9 (morbid obesity) (ICD-10 - E66.01) Kasie is a 60-year-old female with a PMH of T2DM (A1c 6.6%), asthma, HTN, HLD, arthritis that presents for weight management follow-up. Reviewed [facility] holistic and medical approach to weight loss with emphasis on lifestyle modification. 06/22/2025: Weight: 237.7, BMI: 42.1 (-3lbs) SECA reviewed, reveals loss of fat mass with improvement in muscle mass. Patient encouraged to continue making health-conscious diet choices, prioritizing protein intake, practicing portion control, hydrating adequately, and exercising as tolerated. Will reinitiate treatment with Mounjaro 10 mg SC weekly and follow-up in 6 weeks. 05/17/2025: Weight: 239.7, BMI: 42.5. (-1lb) 04/12/2025: Weight: 240.8, BMI: 42.6. (-4lbs) 03/15/2025: Weight: 244.6, BMI: 43.3. (-4lbs) 02/14/2025: Weight: 248, BMI: 43.9. All questions answered to the patient's satisfaction. Patient demonstrates understanding of diagnosis and treatments discussed. Follow-up in 4 weeks, sooner should any questions/concerns arise. Case discussed with collaborating physician Gaby Mcpherson who has reviewed the assessment/plan. Chart, medications, labs, and vital signs reviewed. Dictation completed with the use of [employer] voice recognition software, prone to medical misidentifications and grammatical errors. All errors are unintentional. Although the practitioner does try to identify and correct errors, some may be present. Please do not hesitate to contact the practitioner for clarification. Total time was 30 minutes spent with >50% on coordination of care and patient education. 05/17/2025 Obesity, Class III, BMI 40-49.9 (morbid obesity) (ICD-10 - E66.01) Kasie is a 60-year-old female with a PMH of T2DM (A1c 6.6%), asthma, HTN, HLD, arthritis that presents for weight management follow-up. Reviewed [facility] holistic and medical approach to weight loss with emphasis on lifestyle modification. 05/17/2025: Weight: 239.7, BMI: 42.5. SECA reviewed, reveals 3 pounds of fat loss and 2 pounds muscle mass gain. Patient encouraged to continue making health-conscious diet choices and prioritizing protein intake. Discussed importance of adequate hydration. Discussed modified physical activity with a goal of not exacerbating knee pain. Will increase dose of Mounjaro to 10 mg SC weekly. Upon discontinuation for surgery will reinitiate at lower dose. 04/12/2025: Weight: 240.8, BMI: 42.6. (-4lbs) 03/15/2025: Weight: 244.6, BMI: 43.3. (-4lbs) 02/14/2025: Weight: 248, BMI: 43.9. All questions answered to the patient's satisfaction. Patient demonstrates understanding of diagnosis and treatments discussed. Follow-up in 4 weeks, sooner should any questions/concerns arise. Case discussed with collaborating physician Gaby Mcpherson who has reviewed the assessment/plan. Chart, medications, labs, and vital signs reviewed. Dictation completed with the use of [employer] voice recognition software, prone to medical misidentifications and grammatical errors. All errors are unintentional. Although the practitioner does try to identify and correct errors, some may be present. Please do not hesitate to contact the practitioner for clarification. Total time was 30 minutes spent with >50% on coordination of care and patient education. 04/12/2025 Type 2 diabetes mellitus without complication, without long-term current use of insulin (ICD-10 - E11.9) Kasie is a 59-year-old female with a PMH of T2DM (A1c 6.6%), asthma, HTN, HLD, arthritis that presents for weight management follow-up. Reviewed [facility] holistic and medical approach to weight loss with emphasis on lifestyle modification. 04/12/2025: Weight: 240.8, BMI: 42.6. Patient down 4 pounds. SECA reviewed, reveals 1.5 pounds of fat loss and 3 pounds muscle mass loss. Patient encouraged to continue making health-conscious diet choices and practicing portion control. Protein goal 25 to 30 g/meal. Discussed importance of exercising as tolerated with goal of not exacerbating current knee injury. Plan increase dose of Mounjaro to 7.5 mg SC weekly and follow-up in 1 month. 03/15/2025: Weight: 244.6, BMI: 43.3. (-4lbs) 02/14/2025: Weight: 248, BMI: 43.9. All questions answered to the patient's satisfaction. Patient demonstrates understanding of diagnosis and treatments discussed. Follow-up in 4 weeks, sooner should any questions/concerns arise. Case discussed with collaborating physician Gaby Mcpherson who has reviewed the assessment/plan. Chart, medications, labs, and vital signs reviewed. Dictation completed with the use of [employer] voice recognition software, prone to medical misidentifications and grammatical errors. All errors are unintentional. Although the practitioner does try to identify and correct errors, some may be present. Please do not hesitate to contact the practitioner for clarification. Total time was 30 minutes spent with >50% on coordination of care and patient education. 02/14/2025 Type 2 diabetes mellitus without complication, without long-term current use of insulin (ICD-10 - E11.9) Kasie is a 59-year-old female with a PMH of T2DM (A1c 6.6%), asthma, HTN, HLD, arthritis that presents for weight management consultation. Patient was reassured and welcomed to the practice. Discussed [facility] holistic and medical approach to weight loss with emphasis on lifestyle modification. Patient is educated that a healthy lifestyle aids in combating obesity as well as reducing the risk of developing obesity-related medical complications including but not limited to diabetes and cardiovascular disease. Detailed education provided about taking steps to initiate sustainable lifestyle changes including incorporating regular physical activity, making healthy diet choices, and prioritizing mental health. Information provided about literature including The Food Rules by Mukul Lopez and Eat Fat Get Lean by Dr Brannon Flynn. Handouts including lifestyle checklist, protein content of food, low calorie snacks, and cholesterol information sheet provided. Diagnostic testing/ SECA scale offered. Discussed the importance of regular SECA scale measurements to ensure healthy weight loss. 02/14/2025: Weight: 248, BMI: 43.9. Reviewed SECA/goals for implementing sustainable lifestyle changes. Patient is encouraged to increase physical activity, goal 8-10k steps/day. Also discussed the importance of strength training with proper safety/body mechanics for maintenance of muscle mass/bone health. Patient encouraged to drink 60-80oz water/day. Reviewed nutrition, recommending food diary x 1 week to ensure adequate caloric/protein intake. Goal of 80g protein/day. Reviewed risks, benefits, and side effects of weight management medications including phentermine, Topamax, Contrave, metformin, and GLP-1 agonist. Patient interested in GLP-1 agonist Mounjaro. Denies personal/family history of medullary thyroid cancer/MEN syndrome. Reviewed proper use/administration, side effects, and expectations for PA process/insurance coverage. Patient does have history of mild pancreatitis, upon review of [employer] no history of previous amylase/lipase. Will order to assess if elevated at baseline prior to starting Mounjaro. If WNL plan to send Rx for Mounjaro 2.5 mg SC weekly. All questions answered to the patient's satisfaction. Patient demonstrates understanding of diagnosis and treatments discussed. Follow-up in 4 weeks, sooner should any questions/concerns arise. Case discussed with collaborating physician Gaby Mcpherson who has reviewed the assessment/plan. Chart, medications, labs, and vital signs reviewed. Dictation completed with the use of [employer] voice recognition software, prone to medical misidentifications and grammatical errors. All errors are unintentional. Although the practitioner does try to identify and correct errors, some may be present. Please do not hesitate to contact the practitioner for clarification. Total time was 60 minutes spent with >50% on coordination of care and patient education. 03/15/2025 BMI 40.0-44.9, adult (ICD-10 - Z68.41) Kasie is a 59-year-old female with a PMH of T2DM (A1c 6.6%), asthma, HTN, HLD, arthritis that presents for weight management follow-up. Reviewed [facility] holistic and medical approach to weight loss with emphasis on lifestyle modification. 03/15/2025: Weight: 244.6, BMI: 43.3. Patient down 4 pounds. SECA reviewed, reveals 6 pounds of fat mass and maintenance of healthy muscle mass. Discussed importance of continued prioritization of protein intake, goal 25 to 30 g/meal. She is also encouraged to continue hydrating adequately. Recommending at least 8K steps/day with added strength training 2-3 times weekly. Will increase dose of Mounjaro to 5 mg SC weekly and follow-up in 1 month. 02/14/2025: Weight: 248, BMI: 43.9. Reviewed SECA/goals for implementing sustainable lifestyle changes. Patient is encouraged to increase physical activity, goal 8-10k steps/day. Also discussed the importance of strength training with proper safety/body mechanics for maintenance of muscle mass/bone health. Patient encouraged to drink 60-80oz water/day. Reviewed nutrition, recommending food diary x 1 week to ensure adequate caloric/protein intake. Goal of 80g protein/day. Reviewed risks, benefits, and side effects of weight management medications including phentermine, Topamax, Contrave, metformin, and GLP-1 agonist. Patient interested in GLP-1 agonist Mounjaro. Denies personal/family history of medullary thyroid cancer/MEN syndrome. Reviewed proper use/administration, side effects, and expectations for PA process/insurance coverage. Patient does have history of mild pancreatitis, upon review of [employer] no history of previous amylase/lipase. Will order to assess if elevated at baseline prior to starting Mounjaro. If WNL plan to send Rx for Mounjaro 2.5 mg SC weekly. All questions answered to the patient's satisfaction. Patient demonstrates understanding of diagnosis and treatments discussed. Follow-up in 4 weeks, sooner should any questions/concerns arise. Case discussed with collaborating physician Gaby Mcpherson who has reviewed the assessment/plan. Chart, medications, labs, and vital signs reviewed. Dictation completed with the use of [employer] voice recognition software, prone to medical misidentifications and grammatical errors. All errors are unintentional. Although the practitioner does try to identify and correct errors, some may be present. Please do not hesitate to contact the practitioner for clarification. Total time was 30 minutes spent with >50% on coordination of care and patient education. 03/15/2025 Type 2 diabetes mellitus without complication, without long-term current use of insulin (ICD-10 - E11.9) Kasie is a 59-year-old female with a PMH of T2DM (A1c 6.6%), asthma, HTN, HLD, arthritis that presents for weight management follow-up. Reviewed [facility] holistic and medical approach to weight loss with emphasis on lifestyle modification. 03/15/2025: Weight: 244.6, BMI: 43.3. Patient down 4 pounds. SECA reviewed, reveals 6 pounds of fat mass and maintenance of healthy muscle mass. Discussed importance of continued prioritization of protein intake, goal 25 to 30 g/meal. She is also encouraged to continue hydrating adequately. Recommending at least 8K steps/day with added strength training 2-3 times weekly. Will increase dose of Mounjaro to 5 mg SC weekly and follow-up in 1 month. 02/14/2025: Weight: 248, BMI: 43.9. Reviewed SECA/goals for implementing sustainable lifestyle changes. Patient is encouraged to increase physical activity, goal 8-10k steps/day. Also discussed the importance of strength training with proper safety/body mechanics for maintenance of muscle mass/bone health. Patient encouraged to drink 60-80oz water/day. Reviewed nutrition, recommending food diary x 1 week to ensure adequate caloric/protein intake. Goal of 80g protein/day. Reviewed risks, benefits, and side effects of weight management medications including phentermine, Topamax, Contrave, metformin, and GLP-1 agonist. Patient interested in GLP-1 agonist Mounjaro. Denies personal/family history of medullary thyroid cancer/MEN syndrome. Reviewed proper use/administration, side effects, and expectations for PA process/insurance coverage. Patient does have history of mild pancreatitis, upon review of [employer] no history of previous amylase/lipase. Will order to assess if elevated at baseline prior to starting Mounjaro. If WNL plan to send Rx for Mounjaro 2.5 mg SC weekly. All questions answered to the patient's satisfaction. Patient demonstrates understanding of diagnosis and treatments discussed. Follow-up in 4 weeks, sooner should any questions/concerns arise. Case discussed with collaborating physician Gaby Mcpherson who has reviewed the assessment/plan. Chart, medications, labs, and vital signs reviewed. Dictation completed with the use of [employer] voice recognition software, prone to medical misidentifications and grammatical errors. All errors are unintentional. Although the practitioner does try to identify and correct errors, some may be present. Please do not hesitate to contact the practitioner for clarification. Total time was 30 minutes spent with >50% on coordination of care and patient education. 02/14/2025 Essential hypertension (ICD-10 - I10) Kasie is a 59-year-old female with a PMH of T2DM (A1c 6.6%), asthma, HTN, HLD, arthritis that presents for weight management consultation. Patient was reassured and welcomed to the practice. Discussed [facility] holistic and medical approach to weight loss with emphasis on lifestyle modification. Patient is educated that a healthy lifestyle aids in combating obesity as well as reducing the risk of developing obesity-related medical complications including but not limited to diabetes and cardiovascular disease. Detailed education provided about taking steps to initiate sustainable lifestyle changes including incorporating regular physical activity, making healthy diet choices, and prioritizing mental health. Information provided about literature including The Food Rules by Mukul Lopez and Eat Fat Get Lean by Dr Brannon Flynn. Handouts including lifestyle checklist, protein content of food, low calorie snacks, and cholesterol information sheet provided. Diagnostic testing/ SECA scale offered. Discussed the importance of regular SECA scale measurements to ensure healthy weight loss. 02/14/2025: Weight: 248, BMI: 43.9. Reviewed SECA/goals for implementing sustainable lifestyle changes. Patient is encouraged to increase physical activity, goal 8-10k steps/day. Also discussed the importance of strength training with proper safety/body mechanics for maintenance of muscle mass/bone health. Patient encouraged to drink 60-80oz water/day. Reviewed nutrition, recommending food diary x 1 week to ensure adequate caloric/protein intake. Goal of 80g protein/day. Reviewed risks, benefits, and side effects of weight management medications including phentermine, Topamax, Contrave, metformin, and GLP-1 agonist. Patient interested in GLP-1 agonist Mounjaro. Denies personal/family history of medullary thyroid cancer/MEN syndrome. Reviewed proper use/administration, side effects, and expectations for PA process/insurance coverage. Patient does have history of mild pancreatitis, upon review of [facility]/[employer] no history of previous amylase/lipase. Will order to assess if elevated at baseline prior to starting Mounjaro. If WNL plan to send Rx for Mounjaro 2.5 mg SC weekly. All questions answered to the patient's satisfaction. Patient demonstrates understanding of diagnosis and treatments discussed. Follow-up in 4 weeks, sooner should any questions/concerns arise. Case discussed with collaborating physician Gaby Mcpherson who has reviewed the assessment/plan. Chart, medications, labs, and vital signs reviewed. Dictation completed with the use of [employer] voice recognition software, prone to medical misidentifications and grammatical errors. All errors are unintentional. Although the practitioner does try to identify and correct errors, some may be present. Please do not hesitate to contact the practitioner for clarification. Total time was 60 minutes spent with >50% on coordination of care and patient education. 04/12/2025 Essential hypertension (ICD-10 - I10) Kasie is a 59-year-old female with a PMH of T2DM (A1c 6.6%), asthma, HTN, HLD, arthritis that presents for weight management follow-up. Reviewed [facility] holistic and medical approach to weight loss with emphasis on lifestyle modification. 04/12/2025: Weight: 240.8, BMI: 42.6. Patient down 4 pounds. SECA reviewed, reveals 1.5 pounds of fat loss and 3 pounds muscle mass loss. Patient encouraged to continue making health-conscious diet choices and practicing portion control. Protein goal 25 to 30 g/meal. Discussed importance of exercising as tolerated with goal of not exacerbating current knee injury. Plan increase dose of Mounjaro to 7.5 mg SC weekly and follow-up in 1 month. 03/15/2025: Weight: 244.6, BMI: 43.3. (-4lbs) 02/14/2025: Weight: 248, BMI: 43.9. All questions answered to the patient's satisfaction. Patient demonstrates understanding of diagnosis and treatments discussed. Follow-up in 4 weeks, sooner should any questions/concerns arise. Case discussed with collaborating physician Gaby Mcpherson who has reviewed the assessment/plan. Chart, medications, labs, and vital signs reviewed. Dictation completed with the use of [employer] voice recognition software, prone to medical misidentifications and grammatical errors. All errors are unintentional. Although the practitioner does try to identify and correct errors, some may be present. Please do not hesitate to contact the practitioner for clarification. Total time was 30 minutes spent with >50% on coordination of care and patient education. 05/17/2025 Type 2 diabetes mellitus without complication, without long-term current use of insulin (ICD-10 - E11.9) Kasie is a 60-year-old female with a PMH of T2DM (A1c 6.6%), asthma, HTN, HLD, arthritis that presents for weight management follow-up. Reviewed [facility] holistic and medical approach to weight loss with emphasis on lifestyle modification. 05/17/2025: Weight: 239.7, BMI: 42.5. SECA reviewed, reveals 3 pounds of fat loss and 2 pounds muscle mass gain. Patient encouraged to continue making health-conscious diet choices and prioritizing protein intake. Discussed importance of adequate hydration. Discussed modified physical activity with a goal of not exacerbating knee pain. Will increase dose of Mounjaro to 10 mg SC weekly. Upon discontinuation for surgery will reinitiate at lower dose. 04/12/2025: Weight: 240.8, BMI: 42.6. (-4lbs) 03/15/2025: Weight: 244.6, BMI: 43.3. (-4lbs) 02/14/2025: Weight: 248, BMI: 43.9. All questions answered to the patient's satisfaction. Patient demonstrates understanding of diagnosis and treatments discussed. Follow-up in 4 weeks, sooner should any questions/concerns arise. Case discussed with collaborating physician Gaby Mcpherson who has reviewed the assessment/plan. Chart, medications, labs, and vital signs reviewed. Dictation completed with the use of [employer] voice recognition software, prone to medical misidentifications and grammatical errors. All errors are unintentional. Although the practitioner does try to identify and correct errors, some may be present. Please do not hesitate to contact the practitioner for clarification. Total time was 30 minutes spent with >50% on coordination of care and patient education. 06/22/2025 Type 2 diabetes mellitus without complication, without long-term current use of insulin (ICD-10 - E11.9) Kasie is a 60-year-old female with a PMH of T2DM (A1c 6.6%), asthma, HTN, HLD, arthritis that presents for weight management follow-up. Reviewed [facility] holistic and medical approach to weight loss with emphasis on lifestyle modification. 06/22/2025: Weight: 237.7, BMI: 42.1 (-3lbs) SECA reviewed, reveals loss of fat mass with improvement in muscle mass. Patient encouraged to continue making health-conscious diet choices, prioritizing protein intake, practicing portion control, hydrating adequately, and exercising as tolerated. Will reinitiate treatment with Mounjaro 10 mg SC weekly and follow-up in 6 weeks. 05/17/2025: Weight: 239.7, BMI: 42.5. (-1lb) 04/12/2025: Weight: 240.8, BMI: 42.6. (-4lbs) 03/15/2025: Weight: 244.6, BMI: 43.3. (-4lbs) 02/14/2025: Weight: 248, BMI: 43.9. All questions answered to the patient's satisfaction. Patient demonstrates understanding of diagnosis and treatments discussed. Follow-up in 4 weeks, sooner should any questions/concerns arise. Case discussed with collaborating physician Gaby Mcpherson who has reviewed the assessment/plan. Chart, medications, labs, and vital signs reviewed. Dictation completed with the use of [employer] voice recognition software, prone to medical misidentifications and grammatical errors. All errors are unintentional. Although the practitioner does try to identify and correct errors, some may be present. Please do not hesitate to contact the practitioner for clarification. Total time was 30 minutes spent with >50% on coordination of care and patient education. 08/10/2025 Type 2 diabetes mellitus without complication, without long-term current use of insulin (ICD-10 - E11.9) Kasie is a 60-year-old female with a PMH of T2DM (A1c 6.6%), asthma, HTN, HLD, arthritis that presents for weight management follow-up. Reviewed [facility] holistic and medical approach to weight loss with emphasis on lifestyle modification. 08/10/2025: Weight: 228, BMI: 40.4. (-9lbs) SECA reviewed, reveals primarily fat loss. Patient congratulated on progress. She is encouraged to continue making health-conscious diet choices and prioritizing protein intake. Discussed importance of adequate hydration. Increase physical activity as tolerated given recent knee replacement. Will increase dose of Mounjaro to 12.5 mg SC weekly and follow-up in 6 weeks. 06/22/2025: Weight: 237.7, BMI: 42.1 (-3lbs) 05/17/2025: Weight: 239.7, BMI: 42.5. (-1lb) 04/12/2025: Weight: 240.8, BMI: 42.6. (-4lbs) 03/15/2025: Weight: 244.6, BMI: 43.3. (-4lbs) 02/14/2025: Weight: 248, BMI: 43.9. All questions answered to the patient's satisfaction. Patient demonstrates understanding of diagnosis and treatments discussed. Follow-up in 4 weeks, sooner should any questions/concerns arise. Case discussed with collaborating physician Gaby Mcpherson who has reviewed the assessment/plan. Chart, medications, labs, and vital signs reviewed. Dictation completed with the use of [employer] voice recognition software, prone to medical misidentifications and grammatical errors. All errors are unintentional. Although the practitioner does try to identify and correct errors, some may be present. Please do not hesitate to contact the practitioner for clarification. Total time was 30 minutes spent with >50% on coordination of care and patient education. 09/26/2025 Essential hypertension (ICD-10 - I10) Kasie is a 60-year-old female with a PMH of T2DM (A1c 6.6%), asthma, HTN, HLD, arthritis that presents for weight management follow-up. Reviewed [facility] holistic and medical approach to weight loss with emphasis on lifestyle modification. 09/26/2025: Weight: 228.9, BMI: 40.5. SECA reviewed, relatively unchanged. She is encouraged to continue making health-conscious diet choices and prioritizing protein intake. Discussed importance of adequate hydration. Increase physical activity as tolerated given recent knee replacement. Will increase dose of Mounjaro to 15 mg SC weekly and follow-up in 6 weeks. 08/10/2025: Weight: 228, BMI: 40.4. (-9lbs) 06/22/2025: Weight: 237.7, BMI: 42.1 (-3lbs) 05/17/2025: Weight: 239.7, BMI: 42.5. (-1lb) 04/12/2025: Weight: 240.8, BMI: 42.6. (-4lbs) 03/15/2025: Weight: 244.6, BMI: 43.3. (-4lbs) 02/14/2025: Weight: 248, BMI: 43.9. All questions answered to the patient's satisfaction. Patient demonstrates understanding of diagnosis and treatments discussed. Follow-up in 4 weeks, sooner should any questions/concerns arise. Case discussed with collaborating physician Gaby Mcpherson who has reviewed the assessment/plan. Chart, medications, labs, and vital signs reviewed. Dictation completed with the use of [employer] voice recognition software, prone to medical misidentifications and grammatical errors. All errors are unintentional. Although the practitioner does try to identify and correct errors, some may be present. Please do not hesitate to contact the practitioner for clarification. Total time was 30 minutes spent with >50% on coordination of care and patient education. 08/10/2025 Essential hypertension (ICD-10 - I10) Kasie is a 60-year-old female with a PMH of T2DM (A1c 6.6%), asthma, HTN, HLD, arthritis that presents for weight management follow-up. Reviewed [facility] holistic and medical approach to weight loss with emphasis on lifestyle modification. 08/10/2025: Weight: 228, BMI: 40.4. (-9lbs) SECA reviewed, reveals primarily fat loss. Patient congratulated on progress. She is encouraged to continue making health-conscious diet choices and prioritizing protein intake. Discussed importance of adequate hydration. Increase physical activity as tolerated given recent knee replacement. Will increase dose of Mounjaro to 12.5 mg SC weekly and follow-up in 6 weeks. 06/22/2025: Weight: 237.7, BMI: 42.1 (-3lbs) 05/17/2025: Weight: 239.7, BMI: 42.5. (-1lb) 04/12/2025: Weight: 240.8, BMI: 42.6. (-4lbs) 03/15/2025: Weight: 244.6, BMI: 43.3. (-4lbs) 02/14/2025: Weight: 248, BMI: 43.9. All questions answered to the patient's satisfaction. Patient demonstrates understanding of diagnosis and treatments discussed. Follow-up in 4 weeks, sooner should any questions/concerns arise. Case discussed with collaborating physician Gaby Mcpherson who has reviewed the assessment/plan. Chart, medications, labs, and vital signs reviewed. Dictation completed with the use of [employer] voice recognition software, prone to medical misidentifications and grammatical errors. All errors are unintentional. Although the practitioner does try to identify and correct errors, some may be present. Please do not hesitate to contact the practitioner for clarification. Total time was 30 minutes spent with >50% on coordination of care and patient education. 09/26/2025 Mixed hyperlipidemia (ICD-10 - E78.2) Kasie is a 60-year-old female with a PMH of T2DM (A1c 6.6%), asthma, HTN, HLD, arthritis that presents for weight management follow-up. Reviewed [facility] holistic and medical approach to weight loss with emphasis on lifestyle modification. 09/26/2025: Weight: 228.9, BMI: 40.5. SECA reviewed, relatively unchanged. She is encouraged to continue making health-conscious diet choices and prioritizing protein intake. Discussed importance of adequate hydration. Increase physical activity as tolerated given recent knee replacement. Will increase dose of Mounjaro to 15 mg SC weekly and follow-up in 6 weeks. 08/10/2025: Weight: 228, BMI: 40.4. (-9lbs) 06/22/2025: Weight: 237.7, BMI: 42.1 (-3lbs) 05/17/2025: Weight: 239.7, BMI: 42.5. (-1lb) 04/12/2025: Weight: 240.8, BMI: 42.6. (-4lbs) 03/15/2025: Weight: 244.6, BMI: 43.3. (-4lbs) 02/14/2025: Weight: 248, BMI: 43.9. All questions answered to the patient's satisfaction. Patient demonstrates understanding of diagnosis and treatments discussed. Follow-up in 4 weeks, sooner should any questions/concerns arise. Case discussed with collaborating physician Gaby Mcpherson who has reviewed the assessment/plan. Chart, medications, labs, and vital signs reviewed. Dictation completed with the use of [employer] voice recognition software, prone to medical misidentifications and grammatical errors. All errors are unintentional. Although the practitioner does try to identify and correct errors, some may be present. Please do not hesitate to contact the practitioner for clarification. Total time was 30 minutes spent with >50% on coordination of care and patient education. 06/22/2025 Essential hypertension (ICD-10 - I10) Kasie is a 60-year-old female with a PMH of T2DM (A1c 6.6%), asthma, HTN, HLD, arthritis that presents for weight management follow-up. Reviewed [facility] holistic and medical approach to weight loss with emphasis on lifestyle modification. 06/22/2025: Weight: 237.7, BMI: 42.1 (-3lbs) SECA reviewed, reveals loss of fat mass with improvement in muscle mass. Patient encouraged to continue making health-conscious diet choices, prioritizing protein intake, practicing portion control, hydrating adequately, and exercising as tolerated. Will reinitiate treatment with Mounjaro 10 mg SC weekly and follow-up in 6 weeks. 05/17/2025: Weight: 239.7, BMI: 42.5. (-1lb) 04/12/2025: Weight: 240.8, BMI: 42.6. (-4lbs) 03/15/2025: Weight: 244.6, BMI: 43.3. (-4lbs) 02/14/2025: Weight: 248, BMI: 43.9. All questions answered to the patient's satisfaction. Patient demonstrates understanding of diagnosis and treatments discussed. Follow-up in 4 weeks, sooner should any questions/concerns arise. Case discussed with collaborating physician Gaby Mcpherson who has reviewed the assessment/plan. Chart, medications, labs, and vital signs reviewed. Dictation completed with the use of [employer] voice recognition software, prone to medical misidentifications and grammatical errors. All errors are unintentional. Although the practitioner does try to identify and correct errors, some may be present. Please do not hesitate to contact the practitioner for clarification. Total time was 30 minutes spent with >50% on coordination of care and patient education. 04/12/2025 Mixed hyperlipidemia (ICD-10 - E78.2) Kasie is a 59-year-old female with a PMH of T2DM (A1c 6.6%), asthma, HTN, HLD, arthritis that presents for weight management follow-up. Reviewed [facility] holistic and medical approach to weight loss with emphasis on lifestyle modification. 04/12/2025: Weight: 240.8, BMI: 42.6. Patient down 4 pounds. SECA reviewed, reveals 1.5 pounds of fat loss and 3 pounds muscle mass loss. Patient encouraged to continue making health-conscious diet choices and practicing portion control. Protein goal 25 to 30 g/meal. Discussed importance of exercising as tolerated with goal of not exacerbating current knee injury. Plan increase dose of Mounjaro to 7.5 mg SC weekly and follow-up in 1 month. 03/15/2025: Weight: 244.6, BMI: 43.3. (-4lbs) 02/14/2025: Weight: 248, BMI: 43.9. All questions answered to the patient's satisfaction. Patient demonstrates understanding of diagnosis and treatments discussed. Follow-up in 4 weeks, sooner should any questions/concerns arise. Case discussed with collaborating physician Gaby Mcpherson who has reviewed the assessment/plan. Chart, medications, labs, and vital signs reviewed. Dictation completed with the use of [employer] voice recognition software, prone to medical misidentifications and grammatical errors. All errors are unintentional. Although the practitioner does try to identify and correct errors, some may be present. Please do not hesitate to contact the practitioner for clarification. Total time was 30 minutes spent with >50% on coordination of care and patient education. 05/17/2025 Essential hypertension (ICD-10 - I10) Kasie is a 60-year-old female with a PMH of T2DM (A1c 6.6%), asthma, HTN, HLD, arthritis that presents for weight management follow-up. Reviewed [facility] holistic and medical approach to weight loss with emphasis on lifestyle modification. 05/17/2025: Weight: 239.7, BMI: 42.5. SECA reviewed, reveals 3 pounds of fat loss and 2 pounds muscle mass gain. Patient encouraged to continue making health-conscious diet choices and prioritizing protein intake. Discussed importance of adequate hydration. Discussed modified physical activity with a goal of not exacerbating knee pain. Will increase dose of Mounjaro to 10 mg SC weekly. Upon discontinuation for surgery will reinitiate at lower dose. 04/12/2025: Weight: 240.8, BMI: 42.6. (-4lbs) 03/15/2025: Weight: 244.6, BMI: 43.3. (-4lbs) 02/14/2025: Weight: 248, BMI: 43.9. All questions answered to the patient's satisfaction. Patient demonstrates understanding of diagnosis and treatments discussed. Follow-up in 4 weeks, sooner should any questions/concerns arise. Case discussed with collaborating physician Gaby Mcpherson who has reviewed the assessment/plan. Chart, medications, labs, and vital signs reviewed. Dictation completed with the use of [employer] voice recognition software, prone to medical misidentifications and grammatical errors. All errors are unintentional. Although the practitioner does try to identify and correct errors, some may be present. Please do not hesitate to contact the practitioner for clarification. Total time was 30 minutes spent with >50% on coordination of care and patient education. 02/14/2025 Mixed hyperlipidemia (ICD-10 - E78.2) Kasie is a 59-year-old female with a PMH of T2DM (A1c 6.6%), asthma, HTN, HLD, arthritis that presents for weight management consultation. Patient was reassured and welcomed to the practice. Discussed [facility] holistic and medical approach to weight loss with emphasis on lifestyle modification. Patient is educated that a healthy lifestyle aids in combating obesity as well as reducing the risk of developing obesity-related medical complications including but not limited to diabetes and cardiovascular disease. Detailed education provided about taking steps to initiate sustainable lifestyle changes including incorporating regular physical activity, making healthy diet choices, and prioritizing mental health. Information provided about literature including The Food Rules by Mukul Lopez and Eat Fat Get Lean by Dr Brannon Flynn. Handouts including lifestyle checklist, protein content of food, low calorie snacks, and cholesterol information sheet provided. Diagnostic testing/ SECA scale offered. Discussed the importance of regular SECA scale measurements to ensure healthy weight loss. 02/14/2025: Weight: 248, BMI: 43.9. Reviewed SECA/goals for implementing sustainable lifestyle changes. Patient is encouraged to increase physical activity, goal 8-10k steps/day. Also discussed the importance of strength training with proper safety/body mechanics for maintenance of muscle mass/bone health. Patient encouraged to drink 60-80oz water/day. Reviewed nutrition, recommending food diary x 1 week to ensure adequate caloric/protein intake. Goal of 80g protein/day. Reviewed risks, benefits, and side effects of weight management medications including phentermine, Topamax, Contrave, metformin, and GLP-1 agonist. Patient interested in GLP-1 agonist Mounjaro. Denies personal/family history of medullary thyroid cancer/MEN syndrome. Reviewed proper use/administration, side effects, and expectations for PA process/insurance coverage. Patient does have history of mild pancreatitis, upon review of [employer] no history of previous amylase/lipase. Will order to assess if elevated at baseline prior to starting Mounjaro. If WNL plan to send Rx for Mounjaro 2.5 mg SC weekly. All questions answered to the patient's satisfaction. Patient demonstrates understanding of diagnosis and treatments discussed. Follow-up in 4 weeks, sooner should any questions/concerns arise. Case discussed with collaborating physician Gaby Mcpherson who has reviewed the assessment/plan. Chart, medications, labs, and vital signs reviewed. Dictation completed with the use of [employer] voice recognition software, prone to medical misidentifications and grammatical errors. All errors are unintentional. Although the practitioner does try to identify and correct errors, some may be present. Please do not hesitate to contact the practitioner for clarification. Total time was 60 minutes spent with >50% on coordination of care and patient education. 03/15/2025 Essential hypertension (ICD-10 - I10) Kasie is a 59-year-old female with a PMH of T2DM (A1c 6.6%), asthma, HTN, HLD, arthritis that presents for weight management follow-up. Reviewed [facility] holistic and medical approach to weight loss with emphasis on lifestyle modification. 03/15/2025: Weight: 244.6, BMI: 43.3. Patient down 4 pounds. SECA reviewed, reveals 6 pounds of fat mass and maintenance of healthy muscle mass. Discussed importance of continued prioritization of protein intake, goal 25 to 30 g/meal. She is also encouraged to continue hydrating adequately. Recommending at least 8K steps/day with added strength training 2-3 times weekly. Will increase dose of Mounjaro to 5 mg SC weekly and follow-up in 1 month. 02/14/2025: Weight: 248, BMI: 43.9. Reviewed SECA/goals for implementing sustainable lifestyle changes. Patient is encouraged to increase physical activity, goal 8-10k steps/day. Also discussed the importance of strength training with proper safety/body mechanics for maintenance of muscle mass/bone health. Patient encouraged to drink 60-80oz water/day. Reviewed nutrition, recommending food diary x 1 week to ensure adequate caloric/protein intake. Goal of 80g protein/day. Reviewed risks, benefits, and side effects of weight management medications including phentermine, Topamax, Contrave, metformin, and GLP-1 agonist. Patient interested in GLP-1 agonist Mounjaro. Denies personal/family history of medullary thyroid cancer/MEN syndrome. Reviewed proper use/administration, side effects, and expectations for PA process/insurance coverage. Patient does have history of mild pancreatitis, upon review of [employer] no history of previous amylase/lipase. Will order to assess if elevated at baseline prior to starting Mounjaro. If WNL plan to send Rx for Mounjaro 2.5 mg SC weekly. All questions answered to the patient's satisfaction. Patient demonstrates understanding of diagnosis and treatments discussed. Follow-up in 4 weeks, sooner should any questions/concerns arise. Case discussed with collaborating physician Gaby Mcpherson who has reviewed the assessment/plan. Chart, medications, labs, and vital signs reviewed. Dictation completed with the use of [employer] voice recognition software, prone to medical misidentifications and grammatical errors. All errors are unintentional. Although the practitioner does try to identify and correct errors, some may be present. Please do not hesitate to contact the practitioner for clarification. Total time was 30 minutes spent with >50% on coordination of care and patient education. 03/15/2025 Mixed hyperlipidemia (ICD-10 - E78.2) Kasie is a 59-year-old female with a PMH of T2DM (A1c 6.6%), asthma, HTN, HLD, arthritis that presents for weight management follow-up. Reviewed [facility] holistic and medical approach to weight loss with emphasis on lifestyle modification. 03/15/2025: Weight: 244.6, BMI: 43.3. Patient down 4 pounds. SECA reviewed, reveals 6 pounds of fat mass and maintenance of healthy muscle mass. Discussed importance of continued prioritization of protein intake, goal 25 to 30 g/meal. She is also encouraged to continue hydrating adequately. Recommending at least 8K steps/day with added strength training 2-3 times weekly. Will increase dose of Mounjaro to 5 mg SC weekly and follow-up in 1 month. 02/14/2025: Weight: 248, BMI: 43.9. Reviewed SECA/goals for implementing sustainable lifestyle changes. Patient is encouraged to increase physical activity, goal 8-10k steps/day. Also discussed the importance of strength training with proper safety/body mechanics for maintenance of muscle mass/bone health. Patient encouraged to drink 60-80oz water/day. Reviewed nutrition, recommending food diary x 1 week to ensure adequate caloric/protein intake. Goal of 80g protein/day. Reviewed risks, benefits, and side effects of weight management medications including phentermine, Topamax, Contrave, metformin, and GLP-1 agonist. Patient interested in GLP-1 agonist Mounjaro. Denies personal/family history of medullary thyroid cancer/MEN syndrome. Reviewed proper use/administration, side effects, and expectations for PA process/insurance coverage. Patient does have history of mild pancreatitis, upon review of [employer] no history of previous amylase/lipase. Will order to assess if elevated at baseline prior to starting Mounjaro. If WNL plan to send Rx for Mounjaro 2.5 mg SC weekly. All questions answered to the patient's satisfaction. Patient demonstrates understanding of diagnosis and treatments discussed. Follow-up in 4 weeks, sooner should any questions/concerns arise. Case discussed with collaborating physician Gaby Mcpherson who has reviewed the assessment/plan. Chart, medications, labs, and vital signs reviewed. Dictation completed with the use of [employer] voice recognition software, prone to medical misidentifications and grammatical errors. All errors are unintentional. Although the practitioner does try to identify and correct errors, some may be present. Please do not hesitate to contact the practitioner for clarification. Total time was 30 minutes spent with >50% on coordination of care and patient education. 02/14/2025 Moderate persistent asthma without complication (ICD-10 - J45.40) Kasie is a 59-year-old female with a PMH of T2DM (A1c 6.6%), asthma, HTN, HLD, arthritis that presents for weight management consultation. Patient was reassured and welcomed to the practice. Discussed [facility] holistic and medical approach to weight loss with emphasis on lifestyle modification. Patient is educated that a healthy lifestyle aids in combating obesity as well as reducing the risk of developing obesity-related medical complications including but not limited to diabetes and cardiovascular disease. Detailed education provided about taking steps to initiate sustainable lifestyle changes including incorporating regular physical activity, making healthy diet choices, and prioritizing mental health. Information provided about literature including The Food Rules by Mukul Lopez and Eat Fat Get Lean by Dr Brannon Flynn. Handouts including lifestyle checklist, protein content of food, low calorie snacks, and cholesterol information sheet provided. Diagnostic testing/ SECA scale offered. Discussed the importance of regular SECA scale measurements to ensure healthy weight loss. 02/14/2025: Weight: 248, BMI: 43.9. Reviewed SECA/goals for implementing sustainable lifestyle changes. Patient is encouraged to increase physical activity, goal 8-10k steps/day. Also discussed the importance of strength training with proper safety/body mechanics for maintenance of muscle mass/bone health. Patient encouraged to drink 60-80oz water/day. Reviewed nutrition, recommending food diary x 1 week to ensure adequate caloric/protein intake. Goal of 80g protein/day. Reviewed risks, benefits, and side effects of weight management medications including phentermine, Topamax, Contrave, metformin, and GLP-1 agonist. Patient interested in GLP-1 agonist Mounjaro. Denies personal/family history of medullary thyroid cancer/MEN syndrome. Reviewed proper use/administration, side effects, and expectations for PA process/insurance coverage. Patient does have history of mild pancreatitis, upon review of [employer] no history of previous amylase/lipase. Will order to assess if elevated at baseline prior to starting Mounjaro. If WNL plan to send Rx for Mounjaro 2.5 mg SC weekly. All questions answered to the patient's satisfaction. Patient demonstrates understanding of diagnosis and treatments discussed. Follow-up in 4 weeks, sooner should any questions/concerns arise. Case discussed with collaborating physician Gaby Mcpherson who has reviewed the assessment/plan. Chart, medications, labs, and vital signs reviewed. Dictation completed with the use of [employer] voice recognition software, prone to medical misidentifications and grammatical errors. All errors are unintentional. Although the practitioner does try to identify and correct errors, some may be present. Please do not hesitate to contact the practitioner for clarification. Total time was 60 minutes spent with >50% on coordination of care and patient education. 05/17/2025 Mixed hyperlipidemia (ICD-10 - E78.2) Kasie is a 60-year-old female with a PMH of T2DM (A1c 6.6%), asthma, HTN, HLD, arthritis that presents for weight management follow-up. Reviewed [facility] holistic and medical approach to weight loss with emphasis on lifestyle modification. 05/17/2025: Weight: 239.7, BMI: 42.5. SECA reviewed, reveals 3 pounds of fat loss and 2 pounds muscle mass gain. Patient encouraged to continue making health-conscious diet choices and prioritizing protein intake. Discussed importance of adequate hydration. Discussed modified physical activity with a goal of not exacerbating knee pain. Will increase dose of Mounjaro to 10 mg SC weekly. Upon discontinuation for surgery will reinitiate at lower dose. 04/12/2025: Weight: 240.8, BMI: 42.6. (-4lbs) 03/15/2025: Weight: 244.6, BMI: 43.3. (-4lbs) 02/14/2025: Weight: 248, BMI: 43.9. All questions answered to the patient's satisfaction. Patient demonstrates understanding of diagnosis and treatments discussed. Follow-up in 4 weeks, sooner should any questions/concerns arise. Case discussed with collaborating physician Gaby Mcpherson who has reviewed the assessment/plan. Chart, medications, labs, and vital signs reviewed. Dictation completed with the use of [employer] voice recognition software, prone to medical misidentifications and grammatical errors. All errors are unintentional. Although the practitioner does try to identify and correct errors, some may be present. Please do not hesitate to contact the practitioner for clarification. Total time was 30 minutes spent with >50% on coordination of care and patient education. 04/12/2025 Arthritis (ICD-10 - M19.90) Kasie is a 59-year-old female with a PMH of T2DM (A1c 6.6%), asthma, HTN, HLD, arthritis that presents for weight management follow-up. Reviewed [facility] holistic and medical approach to weight loss with emphasis on lifestyle modification. 04/12/2025: Weight: 240.8, BMI: 42.6. Patient down 4 pounds. SECA reviewed, reveals 1.5 pounds of fat loss and 3 pounds muscle mass loss. Patient encouraged to continue making health-conscious diet choices and practicing portion control. Protein goal 25 to 30 g/meal. Discussed importance of exercising as tolerated with goal of not exacerbating current knee injury. Plan increase dose of Mounjaro to 7.5 mg SC weekly and follow-up in 1 month. 03/15/2025: Weight: 244.6, BMI: 43.3. (-4lbs) 02/14/2025: Weight: 248, BMI: 43.9. All questions answered to the patient's satisfaction. Patient demonstrates understanding of diagnosis and treatments discussed. Follow-up in 4 weeks, sooner should any questions/concerns arise. Case discussed with collaborating physician Gaby Mcpherson who has reviewed the assessment/plan. Chart, medications, labs, and vital signs reviewed. Dictation completed with the use of [employer] voice recognition software, prone to medical misidentifications and grammatical errors. All errors are unintentional. Although the practitioner does try to identify and correct errors, some may be present. Please do not hesitate to contact the practitioner for clarification. Total time was 30 minutes spent with >50% on coordination of care and patient education. 06/22/2025 Mixed hyperlipidemia (ICD-10 - E78.2) Kasie is a 60-year-old female with a PMH of T2DM (A1c 6.6%), asthma, HTN, HLD, arthritis that presents for weight management follow-up. Reviewed [facility] holistic and medical approach to weight loss with emphasis on lifestyle modification. 06/22/2025: Weight: 237.7, BMI: 42.1 (-3lbs) SECA reviewed, reveals loss of fat mass with improvement in muscle mass. Patient encouraged to continue making health-conscious diet choices, prioritizing protein intake, practicing portion control, hydrating adequately, and exercising as tolerated. Will reinitiate treatment with Mounjaro 10 mg SC weekly and follow-up in 6 weeks. 05/17/2025: Weight: 239.7, BMI: 42.5. (-1lb) 04/12/2025: Weight: 240.8, BMI: 42.6. (-4lbs) 03/15/2025: Weight: 244.6, BMI: 43.3. (-4lbs) 02/14/2025: Weight: 248, BMI: 43.9. All questions answered to the patient's satisfaction. Patient demonstrates understanding of diagnosis and treatments discussed. Follow-up in 4 weeks, sooner should any questions/concerns arise. Case discussed with collaborating physician Gaby Mcpherson who has reviewed the assessment/plan. Chart, medications, labs, and vital signs reviewed. Dictation completed with the use of [employer] voice recognition software, prone to medical misidentifications and grammatical errors. All errors are unintentional. Although the practitioner does try to identify and correct errors, some may be present. Please do not hesitate to contact the practitioner for clarification. Total time was 30 minutes spent with >50% on coordination of care and patient education. 08/10/2025 Mixed hyperlipidemia (ICD-10 - E78.2) Kasie is a 60-year-old female with a PMH of T2DM (A1c 6.6%), asthma, HTN, HLD, arthritis that presents for weight management follow-up. Reviewed [facility] holistic and medical approach to weight loss with emphasis on lifestyle modification. 08/10/2025: Weight: 228, BMI: 40.4. (-9lbs) SECA reviewed, reveals primarily fat loss. Patient congratulated on progress. She is encouraged to continue making health-conscious diet choices and prioritizing protein intake. Discussed importance of adequate hydration. Increase physical activity as tolerated given recent knee replacement. Will increase dose of Mounjaro to 12.5 mg SC weekly and follow-up in 6 weeks. 06/22/2025: Weight: 237.7, BMI: 42.1 (-3lbs) 05/17/2025: Weight: 239.7, BMI: 42.5. (-1lb) 04/12/2025: Weight: 240.8, BMI: 42.6. (-4lbs) 03/15/2025: Weight: 244.6, BMI: 43.3. (-4lbs) 02/14/2025: Weight: 248, BMI: 43.9. All questions answered to the patient's satisfaction. Patient demonstrates understanding of diagnosis and treatments discussed. Follow-up in 4 weeks, sooner should any questions/concerns arise. Case discussed with collaborating physician Gaby Mcpherson who has reviewed the assessment/plan. Chart, medications, labs, and vital signs reviewed. Dictation completed with the use of [employer] voice recognition software, prone to medical misidentifications and grammatical errors. All errors are unintentional. Although the practitioner does try to identify and correct errors, some may be present. Please do not hesitate to contact the practitioner for clarification. Total time was 30 minutes spent with >50% on coordination of care and patient education. 09/26/2025 Arthritis (ICD-10 - M19.90) Kasie is a 60-year-old female with a PMH of T2DM (A1c 6.6%), asthma, HTN, HLD, arthritis that presents for weight management follow-up. Reviewed [facility] holistic and medical approach to weight loss with emphasis on lifestyle modification. 09/26/2025: Weight: 228.9, BMI: 40.5. SECA reviewed, relatively unchanged. She is encouraged to continue making health-conscious diet choices and prioritizing protein intake. Discussed importance of adequate hydration. Increase physical activity as tolerated given recent knee replacement. Will increase dose of Mounjaro to 15 mg SC weekly and follow-up in 6 weeks. 08/10/2025: Weight: 228, BMI: 40.4. (-9lbs) 06/22/2025: Weight: 237.7, BMI: 42.1 (-3lbs) 05/17/2025: Weight: 239.7, BMI: 42.5. (-1lb) 04/12/2025: Weight: 240.8, BMI: 42.6. (-4lbs) 03/15/2025: Weight: 244.6, BMI: 43.3. (-4lbs) 02/14/2025: Weight: 248, BMI: 43.9. All questions answered to the patient's satisfaction. Patient demonstrates understanding of diagnosis and treatments discussed. Follow-up in 4 weeks, sooner should any questions/concerns arise. Case discussed with collaborating physician Gaby Mcpherson who has reviewed the assessment/plan. Chart, medications, labs, and vital signs reviewed. Dictation completed with the use of [employer] voice recognition software, prone to medical misidentifications and grammatical errors. All errors are unintentional. Although the practitioner does try to identify and correct errors, some may be present. Please do not hesitate to contact the practitioner for clarification. Total time was 30 minutes spent with >50% on coordination of care and patient education. 09/26/2025 Nutritional counseling (ICD-10 - Z71.3) Kasie is a 60-year-old female with a PMH of T2DM (A1c 6.6%), asthma, HTN, HLD, arthritis that presents for weight management follow-up. Reviewed [facility] holistic and medical approach to weight loss with emphasis on lifestyle modification. 09/26/2025: Weight: 228.9, BMI: 40.5. SECA reviewed, relatively unchanged. She is encouraged to continue making health-conscious diet choices and prioritizing protein intake. Discussed importance of adequate hydration. Increase physical activity as tolerated given recent knee replacement. Will increase dose of Mounjaro to 15 mg SC weekly and follow-up in 6 weeks. 08/10/2025: Weight: 228, BMI: 40.4. (-9lbs) 06/22/2025: Weight: 237.7, BMI: 42.1 (-3lbs) 05/17/2025: Weight: 239.7, BMI: 42.5. (-1lb) 04/12/2025: Weight: 240.8, BMI: 42.6. (-4lbs) 03/15/2025: Weight: 244.6, BMI: 43.3. (-4lbs) 02/14/2025: Weight: 248, BMI: 43.9. All questions answered to the patient's satisfaction. Patient demonstrates understanding of diagnosis and treatments discussed. Follow-up in 4 weeks, sooner should any questions/concerns arise. Case discussed with collaborating physician Gaby Mcpherson who has reviewed the assessment/plan. Chart, medications, labs, and vital signs reviewed. Dictation completed with the use of [employer] voice recognition software, prone to medical misidentifications and grammatical errors. All errors are unintentional. Although the practitioner does try to identify and correct errors, some may be present. Please do not hesitate to contact the practitioner for clarification. Total time was 30 minutes spent with >50% on coordination of care and patient education. 06/22/2025 Arthritis (ICD-10 - M19.90) Kasei is a 60-year-old female with a PMH of T2DM (A1c 6.6%), asthma, HTN, HLD, arthritis that presents for weight management follow-up. Reviewed [facility] holistic and medical approach to weight loss with emphasis on lifestyle modification. 06/22/2025: Weight: 237.7, BMI: 42.1 (-3lbs) SECA reviewed, reveals loss of fat mass with improvement in muscle mass. Patient encouraged to continue making health-conscious diet choices, prioritizing protein intake, practicing portion control, hydrating adequately, and exercising as tolerated. Will reinitiate treatment with Mounjaro 10 mg SC weekly and follow-up in 6 weeks. 05/17/2025: Weight: 239.7, BMI: 42.5. (-1lb) 04/12/2025: Weight: 240.8, BMI: 42.6. (-4lbs) 03/15/2025: Weight: 244.6, BMI: 43.3. (-4lbs) 02/14/2025: Weight: 248, BMI: 43.9. All questions answered to the patient's satisfaction. Patient demonstrates understanding of diagnosis and treatments discussed. Follow-up in 4 weeks, sooner should any questions/concerns arise. Case discussed with collaborating physician Gaby Mcpherson who has reviewed the assessment/plan. Chart, medications, labs, and vital signs reviewed. Dictation completed with the use of [employer] voice recognition software, prone to medical misidentifications and grammatical errors. All errors are unintentional. Although the practitioner does try to identify and correct errors, some may be present. Please do not hesitate to contact the practitioner for clarification. Total time was 30 minutes spent with >50% on coordination of care and patient education. 08/10/2025 Arthritis (ICD-10 - M19.90) Kasie is a 60-year-old female with a PMH of T2DM (A1c 6.6%), asthma, HTN, HLD, arthritis that presents for weight management follow-up. Reviewed [facility] holistic and medical approach to weight loss with emphasis on lifestyle modification. 08/10/2025: Weight: 228, BMI: 40.4. (-9lbs) SECA reviewed, reveals primarily fat loss. Patient congratulated on progress. She is encouraged to continue making health-conscious diet choices and prioritizing protein intake. Discussed importance of adequate hydration. Increase physical activity as tolerated given recent knee replacement. Will increase dose of Mounjaro to 12.5 mg SC weekly and follow-up in 6 weeks. 06/22/2025: Weight: 237.7, BMI: 42.1 (-3lbs) 05/17/2025: Weight: 239.7, BMI: 42.5. (-1lb) 04/12/2025: Weight: 240.8, BMI: 42.6. (-4lbs) 03/15/2025: Weight: 244.6, BMI: 43.3. (-4lbs) 02/14/2025: Weight: 248, BMI: 43.9. All questions answered to the patient's satisfaction. Patient demonstrates understanding of diagnosis and treatments discussed. Follow-up in 4 weeks, sooner should any questions/concerns arise. Case discussed with collaborating physician Gaby Mcpherson who has reviewed the assessment/plan. Chart, medications, labs, and vital signs reviewed. Dictation completed with the use of [employer] voice recognition software, prone to medical misidentifications and grammatical errors. All errors are unintentional. Although the practitioner does try to identify and correct errors, some may be present. Please do not hesitate to contact the practitioner for clarification. Total time was 30 minutes spent with >50% on coordination of care and patient education. 04/12/2025 Nutritional counseling (ICD-10 - Z71.3) Kasie is a 59-year-old female with a PMH of T2DM (A1c 6.6%), asthma, HTN, HLD, arthritis that presents for weight management follow-up. Reviewed [facility] holistic and medical approach to weight loss with emphasis on lifestyle modification. 04/12/2025: Weight: 240.8, BMI: 42.6. Patient down 4 pounds. SECA reviewed, reveals 1.5 pounds of fat loss and 3 pounds muscle mass loss. Patient encouraged to continue making health-conscious diet choices and practicing portion control. Protein goal 25 to 30 g/meal. Discussed importance of exercising as tolerated with goal of not exacerbating current knee injury. Plan increase dose of Mounjaro to 7.5 mg SC weekly and follow-up in 1 month. 03/15/2025: Weight: 244.6, BMI: 43.3. (-4lbs) 02/14/2025: Weight: 248, BMI: 43.9. All questions answered to the patient's satisfaction. Patient demonstrates understanding of diagnosis and treatments discussed. Follow-up in 4 weeks, sooner should any questions/concerns arise. Case discussed with collaborating physician Gaby Mcpherson who has reviewed the assessment/plan. Chart, medications, labs, and vital signs reviewed. Dictation completed with the use of [employer] voice recognition software, prone to medical misidentifications and grammatical errors. All errors are unintentional. Although the practitioner does try to identify and correct errors, some may be present. Please do not hesitate to contact the practitioner for clarification. Total time was 30 minutes spent with >50% on coordination of care and patient education. 05/17/2025 Arthritis (ICD-10 - M19.90) Kasie is a 60-year-old female with a PMH of T2DM (A1c 6.6%), asthma, HTN, HLD, arthritis that presents for weight management follow-up. Reviewed [facility] holistic and medical approach to weight loss with emphasis on lifestyle modification. 05/17/2025: Weight: 239.7, BMI: 42.5. SECA reviewed, reveals 3 pounds of fat loss and 2 pounds muscle mass gain. Patient encouraged to continue making health-conscious diet choices and prioritizing protein intake. Discussed importance of adequate hydration. Discussed modified physical activity with a goal of not exacerbating knee pain. Will increase dose of Mounjaro to 10 mg SC weekly. Upon discontinuation for surgery will reinitiate at lower dose. 04/12/2025: Weight: 240.8, BMI: 42.6. (-4lbs) 03/15/2025: Weight: 244.6, BMI: 43.3. (-4lbs) 02/14/2025: Weight: 248, BMI: 43.9. All questions answered to the patient's satisfaction. Patient demonstrates understanding of diagnosis and treatments discussed. Follow-up in 4 weeks, sooner should any questions/concerns arise. Case discussed with collaborating physician Gaby Mcpherson who has reviewed the assessment/plan. Chart, medications, labs, and vital signs reviewed. Dictation completed with the use of [employer] voice recognition software, prone to medical misidentifications and grammatical errors. All errors are unintentional. Although the practitioner does try to identify and correct errors, some may be present. Please do not hesitate to contact the practitioner for clarification. Total time was 30 minutes spent with >50% on coordination of care and patient education. 02/14/2025 Arthritis (ICD-10 - M19.90) Kasie is a 59-year-old female with a PMH of T2DM (A1c 6.6%), asthma, HTN, HLD, arthritis that presents for weight management consultation. Patient was reassured and welcomed to the practice. Discussed [facility] holistic and medical approach to weight loss with emphasis on lifestyle modification. Patient is educated that a healthy lifestyle aids in combating obesity as well as reducing the risk of developing obesity-related medical complications including but not limited to diabetes and cardiovascular disease. Detailed education provided about taking steps to initiate sustainable lifestyle changes including incorporating regular physical activity, making healthy diet choices, and prioritizing mental health. Information provided about literature including The Food Rules by Mukul Lopez and Eat Fat Get Lean by Dr Brannon Flynn. Handouts including lifestyle checklist, protein content of food, low calorie snacks, and cholesterol information sheet provided. Diagnostic testing/ SECA scale offered. Discussed the importance of regular SECA scale measurements to ensure healthy weight loss. 02/14/2025: Weight: 248, BMI: 43.9. Reviewed SECA/goals for implementing sustainable lifestyle changes. Patient is encouraged to increase physical activity, goal 8-10k steps/day. Also discussed the importance of strength training with proper safety/body mechanics for maintenance of muscle mass/bone health. Patient encouraged to drink 60-80oz water/day. Reviewed nutrition, recommending food diary x 1 week to ensure adequate caloric/protein intake. Goal of 80g protein/day. Reviewed risks, benefits, and side effects of weight management medications including phentermine, Topamax, Contrave, metformin, and GLP-1 agonist. Patient interested in GLP-1 agonist Mounjaro. Denies personal/family history of medullary thyroid cancer/MEN syndrome. Reviewed proper use/administration, side effects, and expectations for PA process/insurance coverage. Patient does have history of mild pancreatitis, upon review of [employer] no history of previous amylase/lipase. Will order to assess if elevated at baseline prior to starting Mounjaro. If WNL plan to send Rx for Mounjaro 2.5 mg SC weekly. All questions answered to the patient's satisfaction. Patient demonstrates understanding of diagnosis and treatments discussed. Follow-up in 4 weeks, sooner should any questions/concerns arise. Case discussed with collaborating physician Gaby Mcpherson who has reviewed the assessment/plan. Chart, medications, labs, and vital signs reviewed. Dictation completed with the use of [employer] voice recognition software, prone to medical misidentifications and grammatical errors. All errors are unintentional. Although the practitioner does try to identify and correct errors, some may be present. Please do not hesitate to contact the practitioner for clarification. Total time was 60 minutes spent with >50% on coordination of care and patient education. 03/15/2025 Moderate persistent asthma without complication (ICD-10 - J45.40) Kasie is a 59-year-old female with a PMH of T2DM (A1c 6.6%), asthma, HTN, HLD, arthritis that presents for weight management follow-up. Reviewed [facility] holistic and medical approach to weight loss with emphasis on lifestyle modification. 03/15/2025: Weight: 244.6, BMI: 43.3. Patient down 4 pounds. SECA reviewed, reveals 6 pounds of fat mass and maintenance of healthy muscle mass. Discussed importance of continued prioritization of protein intake, goal 25 to 30 g/meal. She is also encouraged to continue hydrating adequately. Recommending at least 8K steps/day with added strength training 2-3 times weekly. Will increase dose of Mounjaro to 5 mg SC weekly and follow-up in 1 month. 02/14/2025: Weight: 248, BMI: 43.9. Reviewed SECA/goals for implementing sustainable lifestyle changes. Patient is encouraged to increase physical activity, goal 8-10k steps/day. Also discussed the importance of strength training with proper safety/body mechanics for maintenance of muscle mass/bone health. Patient encouraged to drink 60-80oz water/day. Reviewed nutrition, recommending food diary x 1 week to ensure adequate caloric/protein intake. Goal of 80g protein/day. Reviewed risks, benefits, and side effects of weight management medications including phentermine, Topamax, Contrave, metformin, and GLP-1 agonist. Patient interested in GLP-1 agonist Mounjaro. Denies personal/family history of medullary thyroid cancer/MEN syndrome. Reviewed proper use/administration, side effects, and expectations for PA process/insurance coverage. Patient does have history of mild pancreatitis, upon review of [employer] [employer] no history of previous amylase/lipase. Will order to assess if elevated at baseline prior to starting Mounjaro. If WNL plan to send Rx for Mounjaro 2.5 mg SC weekly. All questions answered to the patient's satisfaction. Patient demonstrates understanding of diagnosis and treatments discussed. Follow-up in 4 weeks, sooner should any questions/concerns arise. Case discussed with collaborating physician Gaby Mcpherson who has reviewed the assessment/plan. Chart, medications, labs, and vital signs reviewed. Dictation completed with the use of [employer] voice recognition software, prone to medical misidentifications and grammatical errors. All errors are unintentional. Although the practitioner does try to identify and correct errors, some may be present. Please do not hesitate to contact the practitioner for clarification. Total time was 30 minutes spent with >50% on coordination of care and patient education. 03/15/2025 Arthritis (ICD-10 - M19.90) Kasie is a 59-year-old female with a PMH of T2DM (A1c 6.6%), asthma, HTN, HLD, arthritis that presents for weight management follow-up. Reviewed [facility] holistic and medical approach to weight loss with emphasis on lifestyle modification. 03/15/2025: Weight: 244.6, BMI: 43.3. Patient down 4 pounds. SECA reviewed, reveals 6 pounds of fat mass and maintenance of healthy muscle mass. Discussed importance of continued prioritization of protein intake, goal 25 to 30 g/meal. She is also encouraged to continue hydrating adequately. Recommending at least 8K steps/day with added strength training 2-3 times weekly. Will increase dose of Mounjaro to 5 mg SC weekly and follow-up in 1 month. 02/14/2025: Weight: 248, BMI: 43.9. Reviewed SECA/goals for implementing sustainable lifestyle changes. Patient is encouraged to increase physical activity, goal 8-10k steps/day. Also discussed the importance of strength training with proper safety/body mechanics for maintenance of muscle mass/bone health. Patient encouraged to drink 60-80oz water/day. Reviewed nutrition, recommending food diary x 1 week to ensure adequate caloric/protein intake. Goal of 80g protein/day. Reviewed risks, benefits, and side effects of weight management medications including phentermine, Topamax, Contrave, metformin, and GLP-1 agonist. Patient interested in GLP-1 agonist Mounjaro. Denies personal/family history of medullary thyroid cancer/MEN syndrome. Reviewed proper use/administration, side effects, and expectations for PA process/insurance coverage. Patient does have history of mild pancreatitis, upon review of [employer] no history of previous amylase/lipase. Will order to assess if elevated at baseline prior to starting Mounjaro. If WNL plan to send Rx for Mounjaro 2.5 mg SC weekly. All questions answered to the patient's satisfaction. Patient demonstrates understanding of diagnosis and treatments discussed. Follow-up in 4 weeks, sooner should any questions/concerns arise. Case discussed with collaborating physician Gaby Mcpherson who has reviewed the assessment/plan. Chart, medications, labs, and vital signs reviewed. Dictation completed with the use of [employer] voice recognition software, prone to medical misidentifications and grammatical errors. All errors are unintentional. Although the practitioner does try to identify and correct errors, some may be present. Please do not hesitate to contact the practitioner for clarification. Total time was 30 minutes spent with >50% on coordination of care and patient education. 02/14/2025 History of pancreatitis (ICD-10 - Z87.19) Kasie is a 59-year-old female with a PMH of T2DM (A1c 6.6%), asthma, HTN, HLD, arthritis that presents for weight management consultation. Patient was reassured and welcomed to the practice. Discussed [facility] holistic and medical approach to weight loss with emphasis on lifestyle modification. Patient is educated that a healthy lifestyle aids in combating obesity as well as reducing the risk of developing obesity-related medical complications including but not limited to diabetes and cardiovascular disease. Detailed education provided about taking steps to initiate sustainable lifestyle changes including incorporating regular physical activity, making healthy diet choices, and prioritizing mental health. Information provided about literature including The Food Rules by Mukul Lopez and Eat Fat Get Lean by Dr Brannon Flynn. Handouts including lifestyle checklist, protein content of food, low calorie snacks, and cholesterol information sheet provided. Diagnostic testing/ SECA scale offered. Discussed the importance of regular SECA scale measurements to ensure healthy weight loss. 02/14/2025: Weight: 248, BMI: 43.9. Reviewed SECA/goals for implementing sustainable lifestyle changes. Patient is encouraged to increase physical activity, goal 8-10k steps/day. Also discussed the importance of strength training with proper safety/body mechanics for maintenance of muscle mass/bone health. Patient encouraged to drink 60-80oz water/day. Reviewed nutrition, recommending food diary x 1 week to ensure adequate caloric/protein intake. Goal of 80g protein/day. Reviewed risks, benefits, and side effects of weight management medications including phentermine, Topamax, Contrave, metformin, and GLP-1 agonist. Patient interested in GLP-1 agonist Mounjaro. Denies personal/family history of medullary thyroid cancer/MEN syndrome. Reviewed proper use/administration, side effects, and expectations for PA process/insurance coverage. Patient does have history of mild pancreatitis, upon review of [employer] no history of previous amylase/lipase. Will order to assess if elevated at baseline prior to starting Mounjaro. If WNL plan to send Rx for Mounjaro 2.5 mg SC weekly. All questions answered to the patient's satisfaction. Patient demonstrates understanding of diagnosis and treatments discussed. Follow-up in 4 weeks, sooner should any questions/concerns arise. Case discussed with collaborating physician Gaby Mcpherson who has reviewed the assessment/plan. Chart, medications, labs, and vital signs reviewed. Dictation completed with the use of [employer] voice recognition software, prone to medical misidentifications and grammatical errors. All errors are unintentional. Although the practitioner does try to identify and correct errors, some may be present. Please do not hesitate to contact the practitioner for clarification. Total time was 60 minutes spent with >50% on coordination of care and patient education. 05/17/2025 Nutritional counseling (ICD-10 - Z71.3) Kasie is a 60-year-old female with a PMH of T2DM (A1c 6.6%), asthma, HTN, HLD, arthritis that presents for weight management follow-up. Reviewed [facility] holistic and medical approach to weight loss with emphasis on lifestyle modification. 05/17/2025: Weight: 239.7, BMI: 42.5. SECA reviewed, reveals 3 pounds of fat loss and 2 pounds muscle mass gain. Patient encouraged to continue making health-conscious diet choices and prioritizing protein intake. Discussed importance of adequate hydration. Discussed modified physical activity with a goal of not exacerbating knee pain. Will increase dose of Mounjaro to 10 mg SC weekly. Upon discontinuation for surgery will reinitiate at lower dose. 04/12/2025: Weight: 240.8, BMI: 42.6. (-4lbs) 03/15/2025: Weight: 244.6, BMI: 43.3. (-4lbs) 02/14/2025: Weight: 248, BMI: 43.9. All questions answered to the patient's satisfaction. Patient demonstrates understanding of diagnosis and treatments discussed. Follow-up in 4 weeks, sooner should any questions/concerns arise. Case discussed with collaborating physician Gaby Mcpherson who has reviewed the assessment/plan. Chart, medications, labs, and vital signs reviewed. Dictation completed with the use of [employer] voice recognition software, prone to medical misidentifications and grammatical errors. All errors are unintentional. Although the practitioner does try to identify and correct errors, some may be present. Please do not hesitate to contact the practitioner for clarification. Total time was 30 minutes spent with >50% on coordination of care and patient education. 08/10/2025 Nutritional counseling (ICD-10 - Z71.3) Kasie is a 60-year-old female with a PMH of T2DM (A1c 6.6%), asthma, HTN, HLD, arthritis that presents for weight management follow-up. Reviewed [facility] holistic and medical approach to weight loss with emphasis on lifestyle modification. 08/10/2025: Weight: 228, BMI: 40.4. (-9lbs) SECA reviewed, reveals primarily fat loss. Patient congratulated on progress. She is encouraged to continue making health-conscious diet choices and prioritizing protein intake. Discussed importance of adequate hydration. Increase physical activity as tolerated given recent knee replacement. Will increase dose of Mounjaro to 12.5 mg SC weekly and follow-up in 6 weeks. 06/22/2025: Weight: 237.7, BMI: 42.1 (-3lbs) 05/17/2025: Weight: 239.7, BMI: 42.5. (-1lb) 04/12/2025: Weight: 240.8, BMI: 42.6. (-4lbs) 03/15/2025: Weight: 244.6, BMI: 43.3. (-4lbs) 02/14/2025: Weight: 248, BMI: 43.9. All questions answered to the patient's satisfaction. Patient demonstrates understanding of diagnosis and treatments discussed. Follow-up in 4 weeks, sooner should any questions/concerns arise. Case discussed with collaborating physician Gaby Mcpherson who has reviewed the assessment/plan. Chart, medications, labs, and vital signs reviewed. Dictation completed with the use of [employer] voice recognition software, prone to medical misidentifications and grammatical errors. All errors are unintentional. Although the practitioner does try to identify and correct errors, some may be present. Please do not hesitate to contact the practitioner for clarification. Total time was 30 minutes spent with >50% on coordination of care and patient education. 06/22/2025 Nutritional counseling (ICD-10 - Z71.3) Kasie is a 60-year-old female with a PMH of T2DM (A1c 6.6%), asthma, HTN, HLD, arthritis that presents for weight management follow-up. Reviewed [facility] holistic and medical approach to weight loss with emphasis on lifestyle modification. 06/22/2025: Weight: 237.7, BMI: 42.1 (-3lbs) SECA reviewed, reveals loss of fat mass with improvement in muscle mass. Patient encouraged to continue making health-conscious diet choices, prioritizing protein intake, practicing portion control, hydrating adequately, and exercising as tolerated. Will reinitiate treatment with Mounjaro 10 mg SC weekly and follow-up in 6 weeks. 05/17/2025: Weight: 239.7, BMI: 42.5. (-1lb) 04/12/2025: Weight: 240.8, BMI: 42.6. (-4lbs) 03/15/2025: Weight: 244.6, BMI: 43.3. (-4lbs) 02/14/2025: Weight: 248, BMI: 43.9. All questions answered to the patient's satisfaction. Patient demonstrates understanding of diagnosis and treatments discussed. Follow-up in 4 weeks, sooner should any questions/concerns arise. Case discussed with collaborating physician Gaby Mcpherson who has reviewed the assessment/plan. Chart, medications, labs, and vital signs reviewed. Dictation completed with the use of [employer] voice recognition software, prone to medical misidentifications and grammatical errors. All errors are unintentional. Although the practitioner does try to identify and correct errors, some may be present. Please do not hesitate to contact the practitioner for clarification. Total time was 30 minutes spent with >50% on coordination of care and patient education. 02/14/2025 Nutritional counseling (ICD-10 - Z71.3) Kasie is a 59-year-old female with a PMH of T2DM (A1c 6.6%), asthma, HTN, HLD, arthritis that presents for weight management consultation. Patient was reassured and welcomed to the practice. Discussed [facility] holistic and medical approach to weight loss with emphasis on lifestyle modification. Patient is educated that a healthy lifestyle aids in combating obesity as well as reducing the risk of developing obesity-related medical complications including but not limited to diabetes and cardiovascular disease. Detailed education provided about taking steps to initiate sustainable lifestyle changes including incorporating regular physical activity, making healthy diet choices, and prioritizing mental health. Information provided about literature including The Food Rules by Mukul Lopez and Eat Fat Get Lean by Dr Brannon Flynn. Handouts including lifestyle checklist, protein content of food, low calorie snacks, and cholesterol information sheet provided. Diagnostic testing/ SECA scale offered. Discussed the importance of regular SECA scale measurements to ensure healthy weight loss. 02/14/2025: Weight: 248, BMI: 43.9. Reviewed SECA/goals for implementing sustainable lifestyle changes. Patient is encouraged to increase physical activity, goal 8-10k steps/day. Also discussed the importance of strength training with proper safety/body mechanics for maintenance of muscle mass/bone health. Patient encouraged to drink 60-80oz water/day. Reviewed nutrition, recommending food diary x 1 week to ensure adequate caloric/protein intake. Goal of 80g protein/day. Reviewed risks, benefits, and side effects of weight management medications including phentermine, Topamax, Contrave, metformin, and GLP-1 agonist. Patient interested in GLP-1 agonist Mounjaro. Denies personal/family history of medullary thyroid cancer/MEN syndrome. Reviewed proper use/administration, side effects, and expectations for PA process/insurance coverage. Patient does have history of mild pancreatitis, upon review of [employer] no history of previous amylase/lipase. Will order to assess if elevated at baseline prior to starting Mounjaro. If WNL plan to send Rx for Mounjaro 2.5 mg SC weekly. All questions answered to the patient's satisfaction. Patient demonstrates understanding of diagnosis and treatments discussed. Follow-up in 4 weeks, sooner should any questions/concerns arise. Case discussed with collaborating physician Gaby Mcpherson who has reviewed the assessment/plan. Chart, medications, labs, and vital signs reviewed. Dictation completed with the use of [employer] voice recognition software, prone to medical misidentifications and grammatical errors. All errors are unintentional. Although the practitioner does try to identify and correct errors, some may be present. Please do not hesitate to contact the practitioner for clarification. Total time was 60 minutes spent with >50% on coordination of care and patient education. 03/15/2025 History of pancreatitis (ICD-10 - Z87.19) Kasie is a 59-year-old female with a PMH of T2DM (A1c 6.6%), asthma, HTN, HLD, arthritis that presents for weight management follow-up. Reviewed [facility] holistic and medical approach to weight loss with emphasis on lifestyle modification. 03/15/2025: Weight: 244.6, BMI: 43.3. Patient down 4 pounds. SECA reviewed, reveals 6 pounds of fat mass and maintenance of healthy muscle mass. Discussed importance of continued prioritization of protein intake, goal 25 to 30 g/meal. She is also encouraged to continue hydrating adequately. Recommending at least 8K steps/day with added strength training 2-3 times weekly. Will increase dose of Mounjaro to 5 mg SC weekly and follow-up in 1 month. 02/14/2025: Weight: 248, BMI: 43.9. Reviewed SECA/goals for implementing sustainable lifestyle changes. Patient is encouraged to increase physical activity, goal 8-10k steps/day. Also discussed the importance of strength training with proper safety/body mechanics for maintenance of muscle mass/bone health. Patient encouraged to drink 60-80oz water/day. Reviewed nutrition, recommending food diary x 1 week to ensure adequate caloric/protein intake. Goal of 80g protein/day. Reviewed risks, benefits, and side effects of weight management medications including phentermine, Topamax, Contrave, metformin, and GLP-1 agonist. Patient interested in GLP-1 agonist Mounjaro. Denies personal/family history of medullary thyroid cancer/MEN syndrome. Reviewed proper use/administration, side effects, and expectations for PA process/insurance coverage. Patient does have history of mild pancreatitis, upon review of [employer] no history of previous amylase/lipase. Will order to assess if elevated at baseline prior to starting Mounjaro. If WNL plan to send Rx for Mounjaro 2.5 mg SC weekly. All questions answered to the patient's satisfaction. Patient demonstrates understanding of diagnosis and treatments discussed. Follow-up in 4 weeks, sooner should any questions/concerns arise. Case discussed with collaborating physician Gaby Mcpherson who has reviewed the assessment/plan. Chart, medications, labs, and vital signs reviewed. Dictation completed with the use of [employer] voice recognition software, prone to medical misidentifications and grammatical errors. All errors are unintentional. Although the practitioner does try to identify and correct errors, some may be present. Please do not hesitate to contact the practitioner for clarification. Total time was 30 minutes spent with >50% on coordination of care and patient education. 03/15/2025 Nutritional counseling (ICD-10 - Z71.3) Kasie is a 59-year-old female with a PMH of T2DM (A1c 6.6%), asthma, HTN, HLD, arthritis that presents for weight management follow-up. Reviewed [facility] holistic and medical approach to weight loss with emphasis on lifestyle modification. 03/15/2025: Weight: 244.6, BMI: 43.3. Patient down 4 pounds. SECA reviewed, reveals 6 pounds of fat mass and maintenance of healthy muscle mass. Discussed importance of continued prioritization of protein intake, goal 25 to 30 g/meal. She is also encouraged to continue hydrating adequately. Recommending at least 8K steps/day with added strength training 2-3 times weekly. Will increase dose of Mounjaro to 5 mg SC weekly and follow-up in 1 month. 02/14/2025: Weight: 248, BMI: 43.9. Reviewed SECA/goals for implementing sustainable lifestyle changes. Patient is encouraged to increase physical activity, goal 8-10k steps/day. Also discussed the importance of strength training with proper safety/body mechanics for maintenance of muscle mass/bone health. Patient encouraged to drink 60-80oz water/day. Reviewed nutrition, recommending food diary x 1 week to ensure adequate caloric/protein intake. Goal of 80g protein/day. Reviewed risks, benefits, and side effects of weight management medications including phentermine, Topamax, Contrave, metformin, and GLP-1 agonist. Patient interested in GLP-1 agonist Mounjaro. Denies personal/family history of medullary thyroid cancer/MEN syndrome. Reviewed proper use/administration, side effects, and expectations for PA process/insurance coverage. Patient does have history of mild pancreatitis, upon review of [employer] no history of previous amylase/lipase. Will order to assess if elevated at baseline prior to starting Mounjaro. If WNL plan to send Rx for Mounjaro 2.5 mg SC weekly. All questions answered to the patient's satisfaction. Patient demonstrates understanding of diagnosis and treatments discussed. Follow-up in 4 weeks, sooner should any questions/concerns arise. Case discussed with collaborating physician Gaby Mcpherson who has reviewed the assessment/plan. Chart, medications, labs, and vital signs reviewed. Dictation completed with the use of [employer] voice recognition software, prone to medical misidentifications and grammatical errors. All errors are unintentional. Although the practitioner does try to identify and correct errors, some may be present. Please do not hesitate to contact the practitioner for clarification. Total time was 30 minutes spent with >50% on coordination of care and patient education. Plan Of Treatment Pending Test Test Name Order Date LIPASE 02/14/2025 AMYLASE 02/14/2025 Next Appt Details Provider Name:JARED EVANS Felice, 11/08/2025 10:00:00 AM, [address], [id number], Insurance Providers Payer Name Payer Address Payer Phone Subscriber Number Group Number Insured Name Patient Relationship to Insured Coverage Start Date Coverage End Date [facility] [address] [place] [address] [id number] Kasie Ferris Self - patient is the insured 3 Medical (General) History Medical History History ICD Code Obesity, Class III, BMI 40-49.9 (morbid obesity) E66.01 Type 2 diabetes mellitus wit hout complication, without long-term current use of insulin E11.9 Essential hypertension I10 Moderate persistent asthma without compl ication J45.40 Mixed hyperlipidemia E78.2 Arthritis M19.90 Surgical History Surgery Date(Month/Year) Gallbladder removal 1997 Meniscus surgery Right/Left knees Tubal ligation Right knee replacement 07/07/25
--- OUTSIDE RECORDS SUMMARY | 2025-10-19 22:40 | XMS_ITS | Clinical Summary ---
Author Organization [address] Address [address] [place] [phone] Phone Care Team Providers Care Cloth Booker Name Role Phone Shara Santos MD Primary Care Provider Allergies Active Allergy Reactions Criticality Noted Date Comments Carisoprodol Medium 10/27/2007 Other Reaction(s): Rash/Dermatitis Oxycodone-Acetaminophen 09/09/2005 Sulfa (Sulfonamide Antibiotics) 09/09/2005 Medications inhalat.spacing dev,large mask spacer Use with inhaler as needed 023 Active medical supply, miscellaneous (MISCELLANEOUS MEDICAL SUPPLY MISC) Inhale into the lungs. [employer] Active methocarbamoL (ROBAXIN) 750 mg tablet Take 1 tablet (750 mg total) by mouth 4 (four) times a day. Active budesonide-glycop yr-formoterol (Breztri Aerosphere) 160-9-4.8 mcg/actuation HFA aerosol inhaler inhaler Inhale 2 puffs by mouth 2 (two) times a day. 1 each 12 024 Active albuterol 2.5 mg /3 mL (0.083 %) nebulizer solution Take 3 mL (2.5 mg total) by nebulization every 4 (four) hours if needed for wheezing. 300 mL 1 024 Active gabapentin (NEURONTIN) 100 mg capsule Take 3 capsules (300 mg total) by mouth at bedtime. 025 Active montelukast (SINGULAIR) 10 mg tabletIndications :Mild persistent asthma, uncomplicated Take 1 tablet (10 mg total) by mouth at bedtime. 90 tablet 1 025 Active diclofenac (VOLTAREN) 75 mg EC tablet TAKE 1 TABLET BY MOUTH TWICE A DAY 60 tablet 4 025 Active Mounjaro 15 mg/0.5 mL injection Inject 0.5 mL (15 mg total) under the skin every 7 (seven) days. 025 Active atorvastatin (LIPITOR) 10 mg tabletIndications :Mixed hyperlipidemia Take 1 tablet (10 mg total) by mouth 1 (one) time each day. 90 tablet 1 025 Active losartan (COZAAR) 50 mg tablet Take 1 tablet (50 mg total) by mouth 1 (one) time each day. 90 tablet 1 025 Active omeprazole (PriLOSEC) [address] capsuleIndication s:Gastroesophagea l reflux disease without esophagitis Take 1 capsule (20 mg total) by mouth 1 (one) time each day. 90 capsule 1 025 Active triamcinolone (KENALOG) 0.025 % cream Apply thin layer to affected area BID for 2 weeks then stop. Avoid face and groin. 30 g 025 Active diclofenac (VOLTAREN) 1 % topical gel Apply 2 g topically 2 (two) times a day. 100 g 025 Active atorvastatin (LIPITOR) 10 mg tabletIndications :Mixed hyperlipidemia Take 1 tablet (10 mg total) by mouth 1 (one) time each day. 90 tablet 1 025 2024 Discontinued(R eorder) omeprazole (PriLOSEC) [address] capsuleIndication s:Gastroesophagea l reflux disease without esophagitis Take 1 capsule (20 mg total) by mouth 1 (one) time each day. 90 capsule 1 025 2024 Discontinued(R eorder) Mounjaro 7.5 mg/0.5 mL injection INJECT 7.5MG SUBCUTANEOUS WEEKLY 025 2024 Discontinued triamcinolone (KENALOG) 0.025 % cream Apply thin layer to affected area BID for 2 weeks then stop. Avoid face and groin. 30 g 025 2024 Discontinued(R eorder) losartan (COZAAR) 50 mg tablet Take 1 tablet (50 mg total) by mouth 1 (one) time each day. 90 tablet 1 025 2024 Discontinued(R eorder) Active Problems Problem Noted Date Diagnosed Date Mixed hyperlipidemia 05/20/2023 Mild persistent asthma 02/18/2023 Type 2 diabetes mellitus wit hout complication, without long-term current use of insulin 04/03/2022 Fatty liver 08/13/2021 Arthritis of knee 05/23/2021 Essential hypertension 11/21/2020 Iron deficiency anemia due to chronic blood loss 01/04/2020 Lichen simplex chronicus 04/28/2018 Overview (08/11/2024): Last Assessment & Plan: Refilled Mycolog for her to use twice weekly prn. Encouraged again to stop shaving. Sleep apnea 04/16/2016 Overview (08/11/2024): On CPAP Obesity, unspecified 04/16/2009 Shoulder pain 01/08/2009 Allergic rhinitis 09/09/2005 Esophageal reflux 09/09/2005 External hemorrhoids 09/09/2005 Overview (08/11/2024): IMO update Pain in joint, lower leg 09/09/2005 Overview (08/11/2024): patellar dislocation times 2 at [facility] several years ago Resolved Problems Problem Noted Date Diagnosed Date Resolved Date Folliculitis 04/28/2018 10/11/2025 Overview (08/11/2024): Last Assessment & Plan: Encouraged pt to stop shaving and instead use a clipper to avoid microabrasion to skin. She agreed. I also reviewed [facility] guidelines and gave her a copy to refer to. She will try daily coconut oil and soaks prn. Encounters Date Type Department Care Team Description 10/12/2025 11:00 AM EST Office Visit Pulmonology - [address] [place] [address] Claire Richmond MD MELY (obstructive sleep apnea) (Primary Dx); Mild persistent asthma without complication 10/12/2025 Results Follow-Up [address] [phone] Shara Santos MD 10/11/2025 2:24 PM EST - 10/11/2025 11:59 PM EST Hospital Encounter [address] [phone] Bilateral hand pain Discharge Disposition: Home or Self Care 10/11/2025 1:30 PM EST Office Visit [address] [phone] Shara Santos MD Type 2 diabetes mellitus without complication, without long-term current use of insulin ([facility] V24, CMS/[facility] V28) (Primary Dx); Mixed hyperlipidemia; Gastroesophageal reflux disease without esophagitis; Essential hypertension; Class 2 severe obesity due to excess calories with serious comorbidity and body mass index (BMI) of 38.0 to 38.9 in adult; Bilateral hand pain 09/11/2025 7:55 AM EST Lab Draw Station - [address] Essential hypertension; Type 2 diabetes mellitus without complication, without long-term current use of insulin (CMS/HCC V24, CMS/HCC V28); Mixed hyperlipidemia 09/11/2025 Results Follow-Up [address] [phone] Deedee Carreon MA from Last 3 Months Immunizations Immunization Administration Dates Next Due Hepatitis A Adult (Havrix; V aqta) 19yo and older 08/12/2017,01/21/2017 Influenza Quadravalent, MDCK , 0.5ml, preservative free (Flucelvax) 6mo and older 10/14/2022,08/06/2021,07/25/2019 Influenza Quadravalent, MDCK , 0.5ml, with preservative (Flucelvax) 6mo and older 08/20/2017 Influenza Quadrivalent, 0.5m l, preservative free (Fluarix; FluLaval; Fluzone) ages 6mo and older (Afluria) 3yo and older 08/27/2018 Influenza trivalent, MDCK, 0 .5mL, preservative free (Flucelvax) 6mo and older 10/11/2025 Influenza trivalent, with pr eservative (Fluzone; Afluria) 6mo and older 07/22/2019,08/27/2018,08/05/2016,07/27,08/21/2012,07/28/2011,08/01/2009 ,09/29/2008,09/23/2007 Pneumococcal polysaccharide 23 valent (Pneumovax 23) 2yo and older 03/11/2004 Td Tetanus diptheria (Tdvax) 7yo and older 11/27/2005 Tdap Tetanus diptheria acell ular pertussis (Boostrix; Adacel) 7yo and older 04/16/2016 Zoster recombinant (Shingrix ) 19yo and older 10/27/2019,07/25/2019,04/03/2019,01/19 Surgical History Surgery Date Site/Laterality Comments CHOLECYSTECTOMY PROCEDURE: HISTORICAL CHOLECYSTECTOMY TONSILLECTOMY PROCEDURE: HISTORICAL TONSILLECTOMY TUBAL LIGATION PROCEDURE: HISTORICAL TUBAL LIGATION OTHER SURGICAL HISTORY 06/16/2016 PROCEDURE: COLON CA SCRN NOT HI RSK IND; COMMENT: L tics, otherwise wnl KNEE SURGERY Bilateral PROCEDURE: HISTORICAL KNEE SURGERY; COMMENT: arthroscopic for meniscal repair - Dr. Posadas Family History Medical History Relation Name Comments Other: heart dz Maternal Grandfather Prostate cancer Maternal Grandfather Other: heart dz Maternal Grandmother Breast cancer Mother 72 mother Diabetes Mother 72 Other: cousin w/ colon ca Other Ovarian cancer Neg Hx Pancreatic cancer Neg Hx Uterine cancer Neg Hx Relation Name Status Comments Father ? Maternal Grandfather Maternal Grandmother Mother 72 cholesterol, DM II Other Sister Alive 2 1/2 sibs, A&W Son 1 Alive A&W Son 2 Alive A&W Social History Tobacco Use Types Packs/Day Years Used Date Smoking Tobacco: Never Smokeless Tobacco: Never Tobacco Cessation:Counseling Given: Not Answered Alcohol Use Standard Drinks/Week Comments Not Currently 0 (1 standard drink = 0.6 oz pur e alcohol) Comments No Sex and Gender Information Value Date Recorded Sex Assigned at Not on file Legal Sex Female 4:33 AM EST Gender Identity Not on file Sexual Orientation Not on file Obstetrics History Para Term AB IAB SAB Ectopic Multiple Livin g Live Births 2 2 2 2 Date Outcome GA Total Labor Labor/2nd/3rd Weight Sex Type Anes PTL Yari A1 A5 Name Clin Term Term Last Filed Vital Signs Vital Sign Reading Time Taken Comments Blood Pressure 130/70 10/12/2025 11:11 AM EST Pulse 96 10/12/2025 11:11 AM EST Temperature 36.3 C (97.4 F) 10/12/2025 11:11 AM EST Respiratory Rate 16 10/12/2025 11:11 AM EST Oxygen Saturation 97% 10/12/2025 11:11 AM EST Inhaled Oxygen Concentration - - Weight 105 kg (230 lb 12.8 oz) 10/12/2025 11:11 AM EST Height 162.6 cm (5' 4 ) 10/12/2025 11:11 AM EST Body Mass Index 39.62 10/12/2025 11:11 AM EST Plan of Treatment Upcoming Encounters Date Type Department Care Team (Late st Contact Info) Description 01/10/2026 12:30 PM EST Office Visit Adult Medicine [address] [phone] Dede Holden PA [address] [place] [phone] 03/14/2026 11:00 AM EDT Ancillary Procedure Pulmonology [address] [phone] 04/18/2026 11:30 AM EDT Office Visit Pulmonology [address] [phone] Claire Richmond MD [address] [place] [phone] Health Maintenance Due Date Last Done Comments Diabetes: Annual Foot Exam 1976 Diabetes: Annual Retina Eye Exam 1976 Hepatitis B Vaccines (1 of 3 - 19+ 3-dose series) 1985 Pneumococcal Vaccine: 50+ Years (2 of 2 - PCV) 03/11/2005 03/11/2004 RSV Immunization Adult Patients (1 - Risk 50-74 years 1-dose series) 2016 Social Influencers of Health Screening 10/18/2022 Depression Screening 11/09/2024 COVID-19 Vaccine ( - season) 2025 10/05/2021, 01/16/2021, 12/25/2020 Diabetes: Annual Urine Albumin-Creatinine Ratio (uACR) 02/08/2026 02/08/2025 Diabetes: Blood Sugar Control Test (HGBA1C) 03/11/2026 09/11/2025, 02/08/2025, 10/26/2024, Additional history exists DTaP,Tdap,and Td Vaccines (3 - Td or Tdap) 04/16/2026 04/16/2016, 11/27/2005 Colorectal Cancer Screening: Colonoscopy 06/16/2026 06/16/2016 Diabetes: Annual GFR (Glomerular Filtration Rate) 09/11/2026 09/11/2025, 02/08/2025, 10/26/2024, Additional history exists Hypertension/CHF/CAD Annual BMP Blood Test 09/11/2026 09/11/2025, 02/08/2025, 10/26/2024, Additional history exists Cervical Cancer Screening: HPV 10/29/2026 10/29/2021 Breast Cancer Screening 03/13/2027 03/13/20 25, 03/01/2025, 02/17/2024, Additional history exists Cholesterol Screening (Lipid Panel) 09/11/2030 09/11/2025, 10/26/2024, 04/20/2024, Additional history exists Hepatitis A Vaccines Aged Out 08/12/2017, 01/22/20 17 No longer eligible based on patient's age to complete this topic Zoster Vaccines Completed 10/27/2019, 07/10, 04/03/2019, Additional history exists HIV Screening Completed 09/16/2023 Hepatitis C Screening Completed 09/16/2023 Influenza Vaccine Completed 10/11/2025, , 08/06/2021, Additional history exists HIB Vaccines Aged Out No longer eligi ble based on patient's age to complete this topic HPV Vaccines Aged Out No longer eligi ble based on patient's age to complete this topic IPV Vaccines Aged Out No longer eligi ble based on patient's age to complete this topic MMR Vaccines Aged Out No longer eligi ble based on patient's age to complete this topic Meningococcal ACWY Vaccine Aged Out N o longer eligible based on patient's age to complete this topic Meningococcal B Vaccine Aged Out No l onger eligible based on patient's age to complete this topic RSV Immunization Patients Under 20 months Aged Out No longer eligible based on patient's age to complete this topic Varicella Vaccines Aged Out No longer eligible based on patient's age to complete this topic Procedures Procedure Name Priority Date/Time Associated Diagnosis Comments XR HAND 3+ VIEWS BILAT Routine 10/11/2025 2:34 PM EST Bilateral hand pain CBC WITH AUTO DIFFERENTIAL Routine 09/11/2025 7:55 AM EST Essential hypertension LIPID PANEL WITH REFLEX TO DIRECT LDL Routine 09/11/2025 7:55 AM EST Mixed hyperlipidemia COMPREHENSIVE METABOLIC PANEL Routine 09/11/2025 7:55 AM EST Essential hypertension HEMOGLOBIN A1C Routine 09/11/2025 7:55 AM EST Type 2 diabetes mellitus without complication, without long-term current use of insulin ([facility] V24, CMS/[facility] V28) CBC AND DIFFERENTIAL Routine 09/11/2025 7:55 AM EST Essential hypertension MG MAMMO DIGITAL DIAGNOSTIC W JEZ LEFT Routine 03/13/2025 10:11 AM EDT Abnormal mammogram MICROALBUMIN CREATININE URINE RATIO Routine 02/08/2025 12:23 PM EDT Type 2 diabetes mellitus without complication, without long-term current use of insulin ([facility] V24, CMS/[facility] V28) HEPATITIS C SCREENING Routine 09/16/2023 HIV SCREENING Routine 09/16/2023 HPV Routine 10/29/2021 HM COLONOSCOPY Routine 06/16/2016 from Last 3 Months or Most Recently Relevant to Health Maintenance Results * XR Hand 3+ Views bilat (10/11/2025 2:34 PM EST) Anatomical Region Laterality Modality Upper Extremities, Hand Bilateral Radiogra phic Imaging 10/11/2025 5:08 PM EST Impressions 10/11/2025 5:09 PM EST Mild osteoarthritic changes of the bilateral DIP joints. -------- FINAL REPORT -------- Dictated By: Dimitry Levine Dictated Date: 10/11/2025 17:08 ET Assigned Physician: Dimitry Levine Reviewed and Electronically Signed By: Dimitry Levine Signed Date: 10/11/2025 17:09 ET Workstation ID: [id number] Transcribed By: Self Edit Transcribed Date: 10/11/2025 17:08 ET Narrative 10/11/2025 5:09 PM EST HISTORY: B.L hand pain -evaluate OA TECHNIQUE: AP, lateral, and oblique radiographs of the bilateral hands COMPARISON: None FINDINGS: There is normal mineralization with no evidence of fracture or malalignment. There is mild joint space narrowing of the bilateral DIP joints with subchondral sclerosis and small osteophytes. No significant soft tissue swelling is identified. Procedure Note Dimitry Levine MD - 10/11/2025 HISTORY: B.L hand pain -evaluate OA TECHNIQUE: AP, lateral, and oblique radiographs of the bilateral hands COMPARISON: None FINDINGS: There is normal mineralization with no evidence of fracture ormalalignment. There is mild joint space narrowing of the bilateral DIPjoints with subchondral sclerosis and small osteophytes. No significantsoft tissue swelling is identified. IMPRESSION: Mild osteoarthritic changes of the bilateral DIP joints. -------- FINAL REPORT -------- Dictated By: Dimitry Levine Dictated Date: 10/11/2025 17:08 ET Assigned Physician: Dimitry Levine Reviewed and Electronically Signed By: Dimitry Levine Signed Date: 10/11/2025 17:09 ET Workstation ID: [id number] Transcribed By: Self Edit Transcribed Date: 10/11/2025 17:08 ET us Shara Santos MD IMG XR PROCEDURES Final Result * (ABNORMAL) Lipid panel with reflex to direct LDL (09/11/2025 7:55 AM EST) Cholesterol 183 0 - 200 mg/dL LAB CHEMISTRY METHOD 09/11/2025 11:06 AM [facility] Triglycerides 194(H) 0 - 150 mg/dL LAB CHEMISTRY METHOD 09/11/2025 11:06 AM [facility] HDL 55 >=40 mg/dL LAB CHEMISTRY METHOD 09/11/2025 11:06 AM [facility] LDL Calculated 89 0 - 100 mg/dL LAB CHEMISTRY METHOD 09/11/2025 11:06 AM [facility] Comment:Estimated LDL Calcul ated using equation: Total cholesterol - HDL cholesterol - (Triglycerides/5) VLDL Cholesterol [place] 38.8 mg/dL LAB CHEMISTRY METHOD 09/11/2025 11:06 AM [facility] Non HDL Chol. (LDL+VLDL) 128 <145 mg/dL LAB CHEMISTRY METHOD 09/11/2025 11:06 AM [facility] Chol/HDL Ratio 3.3 0.0 - 4.4 LAB CHEMISTRY METHOD 09/11/2025 11:06 AM [facility] Blood Venous blood specimen / Unknown Venipuncture / Unknown 09/11/2025 7:55 AM EST 09/11/2025 8:07 AM EST us Shara Santos MD LAB BLOOD ORDERABLES Final Resul t [facility] [address] [place] [address], [place] [phone] * (ABNORMAL) CBC auto differential (09/11/2025 7:55 AM EST) [facility] WBC 7.7 4.8 - 10.8 K/mcL LAB HEMETOLOGY METHOD 09/11/2025 10:36 AM [facility] RBC 4.80 3.80 - 4.80 M/mcL LAB HEMETOLOGY METHOD 09/11/2025 10:36 AM [facility] Hemoglobin 12.7 11.5 - 16.0 g/dL LAB HEMETOLOGY METHOD 09/11/2025 10:36 AM [facility] Hematocrit 39.0 35.0 - 47.0 % LAB HEMETOLOGY METHOD 09/11/2025 10:36 AM [facility] MCV 81.6 79.0 - 98.0 FL LAB HEMETOLOGY METHOD 09/11/2025 10:36 AM [facility] MCH 26.6(L) 27.0 - 32.0 pcg LAB HEMETOLOGY METHOD 09/11/2025 10:36 AM [facility] MCHC 32.6 32.0 - 37.0 g/dL LAB HEMETOLOGY METHOD 09/11/2025 10:36 AM [facility] RDW 13.0 11.0 - 15.0 % LAB HEMETOLOGY METHOD 09/11/2025 10:36 AM [facility] Platelets 289 130 - 400 K/mcL LAB HEMETOLOGY METHOD 09/11/2025 10:36 AM [facility] MPV 11.1(H) 7.0 - 11.0 FL LAB HEMETOLOGY METHOD 09/11/2025 10:36 AM [facility] NRBC 0.0 <1.0 % LAB HEMETOLOGY METHOD 09/11/2025 10:36 AM [facility] NRBC Absolute 0.00 <0.10 K/mcL LAB HEMETOLOGY METHOD 09/11/2025 10:36 AM [facility] Neutrophils Relative 65.4 % LAB HEMETOLOGY METHOD 09/11/2025 10:36 AM [facility] Lymphocytes Relative 24.4 % LAB HEMETOLOGY METHOD 09/11/2025 10:36 AM [facility] Monocytes Relative 8.0 % LAB HEMETOLOGY METHOD 09/11/2025 10:36 AM [facility] Eosinophils Relative 1.4 % LAB HEMETOLOGY METHOD 09/11/2025 10:36 AM [facility] Basophils Relative 0.5 % LAB HEMETOLOGY METHOD 09/11/2025 10:36 AM [facility] Immature Granulocytes Relative 0.3 % LAB HEMETOLOGY METHOD 09/11/2025 10:36 AM [facility] Neutrophils Absolute 5.04 1.50 - 7.00 K/mcL LAB HEMETOLOGY METHOD 09/11/2025 10:36 AM [facility] Lymphocytes Absolute 1.88 1.00 - 5.00 K/mcL LAB HEMETOLOGY METHOD 09/11/2025 10:36 AM [facility] Monocytes Absolute 0.62 0.20 - 1.00 K/mcL LAB HEMETOLOGY METHOD 09/11/2025 10:36 AM [facility] Eosinophils Absolute 0.11 0.00 - 0.50 K/mcL LAB HEMETOLOGY METHOD 09/11/2025 10:36 AM [facility] Basophils Absolute 0.04 0.00 - 0.20 K/mcL LAB HEMETOLOGY METHOD 09/11/2025 10:36 AM [facility] Immature Granulocytes Absolute 0.02 0.00 - 0.03 K/mcL LAB HEMETOLOGY METHOD 09/11/2025 10:36 AM [facility] Blood Venous blood specimen / Unknown Venipuncture / Unknown 09/11/2025 7:55 AM EST 09/11/2025 8:07 AM EST us Shara Santos MD LAB BLOOD ORDERABLES Final Resul t Performing Organization Address City/[facility]/ZIP Co de Phone Number [facility] [address] [place] [address], [place] [phone] * Hemoglobin A1c (09/11/2025 7:55 AM EST) Pathologist [facility] Hemoglobin A1C 5.6 <6.5 % LAB CHEMISTRY METHOD 09/11/2025 4:25 PM EST [facility] Mean Bld Glu Estim. 114 mg/dL LAB CHEMISTRY METHOD 09/11/2025 4:25 PM [facility] Blood Venous blood specimen / Unknown Venipuncture / Unknown 09/11/2025 7:55 AM EST 09/11/2025 8:07 AM EST us Shara Santos MD LAB BLOOD ORDERABLES Final Resul t Performing Organization Address [facility]/ZIP Co de Phone Number [facility] [address] [place] [address], [place] [phone] * (ABNORMAL) Comprehensive metabolic panel (09/11/2025 7:55 AM EST) Pathologist [facility] Sodium 136 133 - 145 mmol/L LAB CHEMISTRY METHOD 09/11/2025 11:06 AM [facility] Potassium 4.2 3.5 - 5.5 mmol/L LAB CHEMISTRY METHOD 09/11/2025 11:06 AM [facility] Chloride 100 96 - 110 mmol/L LAB CHEMISTRY METHOD 09/11/2025 11:06 AM [facility] CO2 28 21 - 32 mmol/L LAB CHEMISTRY METHOD 09/11/2025 11:06 AM [facility] Anion Gap 8 3 - 11 LAB CHEMISTRY METHOD 09/11/2025 11:06 AM [facility] Glucose 108(H) 70 - 100 mg/dL LAB CHEMISTRY METHOD 09/11/2025 11:06 AM [facility] BUN 10 5 - 25 mg/dL LAB CHEMISTRY METHOD 09/11/2025 11:06 AM [facility] Creatinine 0.66 0.50 - 1.10 mg/dL LAB CHEMISTRY METHOD 09/11/2025 11:06 AM [facility] eGFR 101 >=60 mL/min/1. 73m2 LAB CHEMISTRY METHOD 09/11/2025 11:06 AM [facility] Comment:Calculation based on the Chronic Kidney Disease Epidemiology Collaboration (CKD-EPI) equation refit without adjustment for race. BUN/Creatinine Ratio 15.2 LAB CHEMISTRY METHOD 09/11/2025 11:06 AM [facility] Calcium 9.9 8.5 - 10.5 mg/dL LAB CHEMISTRY METHOD 09/11/2025 11:06 AM [facility] AST (SGOT) 14 10 - 42 unit/L LAB CHEMISTRY METHOD 09/11/2025 11:06 AM [facility] ALT (SGPT) 28 10 - 60 unit/L LAB CHEMISTRY METHOD 09/11/2025 11:06 AM [facility] Alkaline Phosphatase 112 42 - 121 unit/L LAB CHEMISTRY METHOD 09/11/2025 11:06 AM [facility] Total Protein 8.0 6.0 - 8.0 g/dL LAB CHEMISTRY METHOD 09/11/2025 11:06 AM [facility] Albumin 4.3 3.2 - 5.0 g/dL LAB CHEMISTRY METHOD 09/11/2025 11:06 AM [facility] Total Bilirubin 0.3 0.0 - 1.4 mg/dL LAB CHEMISTRY METHOD 09/11/2025 11:06 AM [facility] Blood Venous blood specimen / Unknown Venipuncture / Unknown 09/11/2025 7:55 AM EST 09/11/2025 8:07 AM EST us Shara Santos MD LAB BLOOD ORDERABLES Final Resul t [facility] [address] [place] [address], [place] [phone] * (ABNORMAL) MG Mammo Digital Diagnostic w Jez Left (03/13/2025 10:11 AM EDT) Anatomical Region Laterality Modality Breast Left Mammography 03/13/2025 11:4 7 AM EDT Impressions 03/13/2025 11:54 AM EDT Persistent mammographic abnormality without evidence of ultrasonographic correlation. Stereotactic core biopsy of the lesion is recommended. Findings and recommendations were conveyed to the patient. Patient agrees to the procedure. Our staff will contact the patient. The arrangements for the biopsy. BI-RADS CATEGORY: 4A - LOW SUSPICION FOR MALIGNANCY RECOMMENDATION: Core biopsy of left breast recommended. Core biopsy of left breast recommended. Mammo Location: [facility], [address] [place] [address], [id number], . -------- FINAL REPORT -------- Dictated By: Rosemarie Moulton Dictated Date: 03/13/2025 11:47 ET Assigned Physician: Rosemarie Moulton Reviewed and Electronically Signed By: Rosemarie Moulton Signed Date: 03/13/2025 11:54 ET Workstation ID: [id number] Transcribed By: Self Edit Transcribed Date: 03/13/2025 11:47 ET Narrative 03/13/2025 11:54 AM EDT Diagnostic mammogram of the left breast. Targeted left breast ultrasound. CLINICAL: 60 years old, Female, focal asymmetries in the left upper outer and retroareolar breast. COMPARISON: Prior mammograms, latest from 03/01/2025. FINDINGS: MAMMOGRAPHY TECHNIQUE: Spot compression views of the left breast in CC, MLO projections as well as full field straight lateral view of the left wrist were obtained digitally with 2-D C views and 3-D mammogram (digital breast tomosynthesis. Focal asymmetry of concern in the left upper outer breast persists on the spot compression views. The density in the retroareolar left breast mostly effaced on the additional views. BREAST DENSITY: C - The breasts are heterogeneously dense which may obscure small masses. ULTRASOUND TECHNIQUE: Targeted ultrasound of the left upper outer breast revealed no evidence of cystic or solid masses or acoustic shadowing. Procedure Note Rosemarie Moulton MD - 03/13/2025 Diagnostic mammogram of the left breast. Targeted left breastultrasound. CLINICAL: 60 years old, Female, focal asymmetries in the left upper outerand retroareolar breast. COMPARISON: Prior mammograms, latest from 03/01/2025. FINDINGS: MAMMOGRAPHY TECHNIQUE: Spot compression views of the left breast in CC, MLOprojections as well as full field straight lateral view of the left wristwere obtained digitally with 2-D C views and 3-D mammogram (digital breasttomosynthesis. Focal asymmetry of concern in the left upper outer breast persists on thespot compression views. The density in the retroareolar left breastmostly effaced on the additional views. BREAST DENSITY: C - The breasts are heterogeneously dense which mayobscure small masses. ULTRASOUND TECHNIQUE: Targeted ultrasound of the left upper outer breast revealed noevidence of cystic or solid masses or acoustic shadowing. IMPRESSION: Persistent mammographic abnormality without evidence of ultrasonographiccorrelation. Stereotactic core biopsy of the lesion is recommended.Findings and recommendations were conveyed to the patient. Patient agreesto the procedure. Our staff will contact the patient. The arrangementsfor the biopsy. BI-RADS CATEGORY: 4A - LOW SUSPICION FOR MALIGNANCY RECOMMENDATION: Core biopsy of left breast recommended. Core biopsy of left breastrecommended. Mammo Location: [facility], [address] [place] [address], [id number], . -------- FINAL REPORT -------- Dictated By: Rosemarie Moulton Dictated Date: 03/13/2025 11:47 ET Assigned Physician: Rosemarie Moulton Reviewed and Electronically Signed By: Rosemarie Moulton Signed Date: 03/13/2025 11:54 ET Workstation ID: [id number] Transcribed By: Self Edit Transcribed Date: 03/13/2025 11:47 ET Shara Santos MD IMG BI PROCEDURES Final Result * Microalbumin creatinine urine ratio (02/08/2025 12:23 PM EDT) Pathologist [facility] Creatinine, Urine 61.0 mg/dL LAB CHEMISTRY METHOD 02/08/2025 10:15 PM EDT [facility] Microalb, Ur 5.2 0.0 - 29.0 mg/L LAB CHEMISTRY METHOD 02/08/2025 10:15 PM EDT [facility] Microalb/Creat Ratio 9 <30 mg/g creat LAB CHEMISTRY METHOD 02/08/2025 10:15 PM EDT [facility] Urine Urine specimen obtained by clean catch procedure / Unknown Non-blood Collection / Unknown 02/08/2025 12:23 PM EDT 02/08/2025 12:23 PM EDT Dede LOPEZ LAB URINE ORDERABLES Final Res ult [facility] [address] [place] [address], * HIV Screening (09/16/2023) Pathologist [facility] HIV Screening abstracted [facility] Final Result * Hepatitis C Screening (09/16/2023) Pathologist [facility] Hepatitis C Screening abstracted Historical [facility] Final Result * Cervical Cancer Screening: HPV (10/29/2021) Pathologist [facility] Cervical Cancer Screening: HPV negative, abstracted Historical [facility] Final Result * Colonoscopy (06/16/2016) Pathologist [facility] Colonoscopy no interpretation , abstracted Anatomical Region Laterality Modality Other Historical [facility] Final Result from Last 3 Months or Most Recently Relevant to Health Maintenance Insurance [facility] Care Teams Cloth Booker Relationship Specialty Start Date End Date Shara Santos MD [address] [place] [phone] PCP - General Internal Medicine 09/14/24
--- OUTSIDE RECORDS SUMMARY | 2025-10-19 22:40 | XMS_ITS | Encounter Summary ---
Author Organization [facility] Address [address] [place] [address] Care Team Providers Care Relays Draftsperson Name Role Phone Shara Santos MD Primary Care Provider [phone] Encounter Details Date Type Department Care Team (Late Contact Info) Description 10/12/2025 Results Follow-Up Adult Medicine [address] [phone] Shara Santos MD [address] [place] [address] Social History Tobacco Use Types Packs/Day Years [...] on file documented as of this encounter Ordered Prescriptions Prescription Sig Dispense Quantity Refills Last Filled Start Date End Date diclofenac (VOLTAREN) 1 % topical gel Apply 2 g topically 2 (two) times a day. 100 g 10/12/2025 documented in this encounter Plan of Treatment Upcoming Encounters Date Type Department Care Team (Late Contact Info) Description 01/10/2026 12:30 PM EST Office Visit Adult Medicine [address] [phone] Dede Holden PA [address] [place] [id number] 03/14/2026 11:00 AM EDT Ancillary Procedure Pulmonology - [place] [address] [phone] 04/18/2026 11:30 AM EDT Office Visit Pulmonology [facility] [address] [phone] Claire Richmond MD [address] [place] [phone] documented as of this encounter Visit Diagnoses Not on filedocumented in this encounter Care Teams Relays Draftsperson Relationship Specialty Start Date End Date Shara Santos MD [address] [place] [phone] PCP - General Internal Medicine 09/14/24 documented as of this encounter
== END 2025-10-19 16:36 | disposition home or self-care (01) ==
LOC: HO.HPHYS 15:07
PROVIDERS: PCP Internal Medicine; Visit Provider Physician Assistant
DX: M25.811 Other specified joint disorders, right shoulder (principal); M25.812 Other specified joint disorders, left shoulder
CPT/HCPCS: 99213